=== PATIENT | female | born 1985 | race Caucasian/White ===

== ENCOUNTER → 2018-07-30 05:26 | Observation (INO) ==
--- NOTE | 2018-07-30 05:17 | Discharge Summary ---
Date of Encounter: 07/30/18 Time of Encounter: 05:18 - Discharge Diagnosis (1) 22 weeks gestation of Priority: Primary Status: Acute Comments: Follow-up with Dr. Toscano within 7 days labor parameters given Discharge to ED (2) Abdominal pain during Priority: Secondary Status: Acute Comments: causes ruled out Pain is epigastric to far reaching around back Plans to be seen in ED Qualifiers: Trimester: third trimester Qualified Code(s): O26.893 - Other specified related conditions, third trimester; R10.9 - Unspecified abdominal pain - Discharge Medications Home Medications: Blood Pressure Medicine 11/03/17 [History] Cefdinir [Omnicef] 600 mg PO DAILY #20 capsule 11/03/17 [Rx] Fluconazole [Diflucan] 150 mg PO Q72H #2 tab 11/03/17 [Rx] Ondansetron [Zofran ODT] 8 mg SL TID PRN #12 tab.rapdis 11/03/17 [Rx] Promethazine/Dextromethorphan [Promethazine-Dm Solution] 5 ml PO Q4-6H PRN #120 ml 11/03/17 [Rx] Nitrofurantoin (BID) [Macrobid] 100 mg PO BID #14 capsule 04/08/18 [Rx] Vit Calc,Iron,Folic [ Vitamins] 1 each PO DAILY #30 tablet [Rx] Allergies/Adverse Reactions: 3 Allergy/AdvReac Type Severity Reaction Status Date / Time No Known Allergies Allergy Verified 11/03/17 17:42 Date of admission: 07/30/18 04:00 Discharging clinician: Mis Smallwood Anticipated date of discharge: 07/30/18 - Patient Status Disposition: Home, Self-Care Condition: Good Functional capacity at discharge: independent ambulation Overall status at discharge: patient is progressing back to baseline - Discharge Instructions Follow Up With: Bola Malone MD [Partnered Physician] - - Diet and Activity Activity: increase activity as tolerated Diet: regular diet Hospital Course [employer] Reason for admission: other Discharge diagnosis: other Hospital course: Ms. Apodaca is a 33-year-old G 8 [id number] a 22 weeks gestation who presents with sudden onset of right upper quadrant pain that began this evening around midnight or 1 AM. She endorses movement and denies leakage of fluid, vaginal bleeding, contractions. Denies nausea and vomiting. Return to ED for further workup. Time Attestation: Total time spent providing and/or coordinating discharge services: Time Spent: Less than 30 minutes Exam - Constitutional General appearance IM: mild distress, A&O X 3, pleasant, answers questions appropriately - Respiratory Respiratory exam: Present: CTAB - Cardiovascular Cardiovascular exam IM: Present: RRR, +S1, +S2 - GI/Abdominal GI/Abdominal exam IM: normal bowel sounds, no peritoneal signs - Rectal Rectal exam: deferred - Uterine Tone: Firm - Extremities Exam Extremities exam IM: Present: normal capillary refill, normal inspection, radial pulses palpable and symmetrical - Neurological Exam Neurological exam: alert, CN II-XII intact, normal gait, oriented X3, reflexes normal, strengths equal and symetr throughout - VTE Reasons for not Prescribing Prophylaxis: Treatment not Indicated - Low risk for VTE
[2018-07-30 05:38] LABS: Bilirubin,Urine Negative (Negative); Blood,Urine Trace (Negative); Clarity,Urine Clear (Clear); Color,Urine Yellow (Yellow); Glucose,Urine (UA) Normal (Normal); Ketones,Urine Negative (Negative); Leukocyte Esterase,Urine Small (Negative); Nitrite,Urine Negative (Negative); Protein,Urine Negative (Neg-Trace); Specific Gravity,Urine 1.013 (1.010-1.025); Urobilinogen,Urine Normal (Normal)
[2018-07-30 05:40] LABS: Bacteria,Urine Few per hpf (None-Few); Hyaline Casts,Urine None Seen per lpf (None-Few); RBC,Urine 0-3 per hpf (0-3); Squamous Epithelial Cell,Urine Many per lpf (None-Few)
== END | disposition home or self-care (01) ==
LOC: 1NENULAB
PROVIDERS: ADMIT Obstetrics & Gynecology; ATTEND Obstetrics & Gynecology

== ENCOUNTER 2018-10-25 12:44 | Observation (INO) ==
[2018-10-23 23:45] LABS: Bilirubin,Urine Negative (Negative); Blood,Urine Trace (Negative); Clarity,Urine Cloudy (Clear); Color,Urine Yellow (Yellow); Glucose,Urine (UA) Normal (Normal); Ketones,Urine Negative (Negative); Leukocyte Esterase,Urine Negative (Negative); Nitrite,Urine Negative (Negative); Protein,Urine 30 mg/dL (Neg-Trace); Specific Gravity,Urine 1.011 (1.010-1.025); Urobilinogen,Urine Normal (Normal)
[2018-10-23 23:46] LABS: Bacteria,Urine Moderate per hpf (None-Few); Hyaline Casts,Urine None Seen per lpf (None-Few); RBC,Urine 0-3 per hpf (0-3); Squamous Epithelial Cell,Urine Many per lpf (None-Few)
[2018-10-23 23:47] LABS: Basophils % 0.2 %; Eosinophils # 0.1 K/mcL (0.0-0.6); Eosinophils % 0.6 %; Hematocrit 33.7 % (35.3-44.9); Immature Granulocytes % 0.2 % (0-4); Lymphocytes # 2.8 K/mcL (0.6-4.6); Lymphocytes % 32.7 %; Mean Corpuscular HGB Conc 32.6 g/dL (31.6-35.5); Mean Corpuscular Hemoglobin 26.8 pg (28.0-33.3); Mean Corpuscular Volume 82.2 fL (83.0-100.0); Mean Platelet Volume 10.7 fL (9.4-12.4); Monocytes # 0.4 K/mcL (0.0-1.3); Monocytes % 4.2 %; Neutrophils # 5.3 K/mcL (1.6-8.9); Platelet Count 244 K/mcL (140-400); Red Cell Distribution Width 12.7 % (11.5-14.5); Segmented Neutrophils % 62.1 %
[2018-10-23 23:52] LABS: Protein/Creatinine Ratio,Urine 0.26 mg/mg (0.00-0.20)
[2018-10-23 23:53] LABS: Amphetamine Screen,Urine Negative ng/mL (Cutoff=1000); Barbiturate Screen,Urine Negative ng/mL (Cutoff=200); Benzodiazepines Screen,Urine Negative ng/mL (Cutoff=200); Cannabinoid Screen,Urine Negative ng/mL (Cutoff = 50); Cocaine Screen,Urine Negative ng/mL (Cutoff= 300); Opiate Screen,Urine Negative ng/mL (Cutoff=300); Phencyclidine Screen,Urine Negative ng/mL (Cutoff=25)
[2018-10-24 00:02] LABS: Alanine Aminotransferase 17 Units/L (7-52); Aspartate Amino Transferase 18 Units/L (13-39); BUN/Creatinine Ratio 18 (6-26); Blood Urea Nitrogen 9 mg/dL (6-20); Lactate Dehydrogenase 142 Units/L (140-271); Uric Acid 5.7 mg/dL (2.3-7.6); eGFR For Non-African Americans > 60 (> 60)
--- NOTE | 2018-10-24 02:00 | Discharge Summary ---
Date of Encounter: 10/24/18 Time of Encounter: 01:59 - Discharge Diagnosis (1) 34 weeks gestation of Priority: Primary Status: Acute Comments: Follow-up with Dr. Malone on as scheduled labor precautions discussed Discharge home (2) Chronic hypertension affecting Priority: Secondary Status: Acute Comments: Continue home medication regimen and follow-up with Dr. Malone for further instruction Advised to take the recommended additional dose of labetalol when her blood pressure is elevated prior to coming to labor and delivery - Discharge Medications Home Medications: Blood Pressure Medicine 11/03/17 [History] Cefdinir [Omnicef] 600 mg PO DAILY #20 capsule 11/03/17 [Rx] Fluconazole [Diflucan] 150 mg PO Q72H #2 tab 11/03/17 [Rx] Ondansetron [Zofran ODT] 8 mg SL TID PRN #12 tab.rapdis 11/03/17 [Rx] Promethazine/Dextromethorphan [Promethazine-Dm Solution] 5 ml PO Q4-6H PRN #120 ml 11/03/17 [Rx] Vit Calc,Iron,Folic [ Vitamins] 1 each PO DAILY #30 tablet 04/08/18 [Rx] Amoxicillin [Amoxil] 500 mg PO BID 10/24/18 [History] Labetalol [Trandate] 50 mg PO BID 10/24/18 [History] Allergies/Adverse Reactions: Allergy/AdvReac Type Severity Reaction Status Date / Time No Known Allergies Allergy Verified 07/30/18 05:57 Data Procedures and tests throughout hospitalization: Laboratory Tests 10/23/18 10/23/18 10/23/18 23:10 23:10 23:10 WBC 8.5 RBC 4.10 Hgb 11.0 L Hct 33.7 L MCV 82.2 L MCH 26.8 L MCHC 32.6 RDW 12.7 Plt Count 244 MPV 10.7 Immature Gran % 0.2 Seg Neutrophils % 62.1 Lymphocytes % 32.7 Monocytes % 4.2 Eosinophils % 0.6 Basophils % 0.2 Neutrophils # 5.3 Lymphocytes # 2.8 Monocytes # 0.4 Eosinophils # 0.1 Basophils # 0.0 BUN 9 Creatinine 0.49 L Est GFR ( Amer) > 60 Est GFR (Non-Af Amer) > 60 BUN/Creatinine Ratio 18 Uric Acid 5.7 AST 18 ALT 17 Lactate Dehydrogenase 142 Urine Color Urine Clarity Urine pH Ur Specific [place] Urine Protein Urine Glucose (UA) Urine Ketones Urine Blood Urine Nitrite Urine Bilirubin Urine Urobilinogen Ur Leukocyte Esterase Urine Microscopic RBC Urine Microscopic WBC Ur Squamous Epith Cells Urine Bacteria Hyaline Casts Ur Culture Indicated? Urine Creatinine 153 Protein/Creatinin Ratio 0.26 H Urine Total Protein 39 H Urine Opiates Screen Ur Barbiturates Screen Ur Phencyclidine Scrn Ur Amphetamines Screen U Benzodiazepines Scrn Urine Cocaine Screen U Marijuana (THC) Screen Ur Drug Screen Interp 10/23/18 10/23/18 23:10 23:10 WBC RBC Hgb Hct MCV MCH MCHC RDW Plt Count MPV Immature Gran % Seg Neutrophils % Lymphocytes % Monocytes % Eosinophils % Basophils % Neutrophils # Lymphocytes # Monocytes # Eosinophils # Basophils # BUN Creatinine Est GFR ( Amer) Est GFR (Non-Af Amer) BUN/Creatinine Ratio Uric Acid AST ALT Lactate Dehydrogenase Urine Color Yellow Urine Clarity Cloudy A Urine pH 6.0 Ur Specific [place] 1.011 Urine Protein 30 H Urine Glucose (UA) Normal Urine Ketones Negative Urine Blood Trace H Urine Nitrite Negative Urine Bilirubin Negative Urine Urobilinogen Normal Ur Leukocyte Esterase Negative Urine Microscopic RBC 0-3 Urine Microscopic WBC 5-15 H Ur Squamous Epith Cells Many H Urine Bacteria Moderate H Hyaline Casts None Seen Ur Culture Indicated? NO Urine Creatinine Protein/Creatinin Ratio Urine Total Protein Urine Opiates Screen Negative Ur Barbiturates Screen Negative Ur Phencyclidine Scrn Negative Ur Amphetamines Screen Negative U Benzodiazepines Scrn Negative Urine Cocaine Screen Negative U Marijuana (THC) Screen Negative Ur Drug Screen Interp See Below Labs on day of discharge: Labs from last 24 hours 10/23/18 10/23/18 10/23/18 23:10 23:10 23:10 WBC RBC Hgb Hct MCV MCH MCHC RDW Plt Count MPV Immature Gran % Seg Neutrophils % Lymphocytes % Monocytes % Eosinophils % Basophils % Neutrophils # Lymphocytes # Monocytes # Eosinophils # Basophils # BUN Creatinine Est GFR ( Amer) Est GFR (Non-Af Amer) BUN/Creatinine Ratio Uric Acid AST ALT Lactate Dehydrogenase Urine Color Yellow Urine Clarity Cloudy A Urine pH 6.0 Ur Specific [place] 1.011 Urine Protein 30 H Urine Glucose (UA) Normal Urine Ketones Negative Urine Blood Trace H Urine Nitrite Negative Urine Bilirubin Negative Urine Urobilinogen Normal Ur Leukocyte Esterase Negative Urine Microscopic RBC 0-3 Urine Microscopic WBC 5-15 H Ur Squamous Epith Cells Many H Urine Bacteria Moderate H Hyaline Casts None Seen Ur Culture Indicated? NO Urine Creatinine 153 Protein/Creatinin Ratio 0.26 H Urine Total Protein 39 H Urine Opiates Screen Negative Ur Barbiturates Screen Negative Ur Phencyclidine Scrn Negative Ur Amphetamines Screen Negative U Benzodiazepines Scrn Negative Urine Cocaine Screen Negative U Marijuana (THC) Screen Negative Ur Drug Screen Interp See Below 10/23/18 10/23/18 23:10 23:10 WBC 8.5 RBC 4.10 Hgb 11.0 L Hct 33.7 L MCV 82.2 L MCH 26.8 L MCHC 32.6 RDW 12.7 Plt Count 244 MPV 10.7 Immature Gran % 0.2 Seg Neutrophils % 62.1 Lymphocytes % 32.7 Monocytes % 4.2 Eosinophils % 0.6 Basophils % 0.2 Neutrophils # 5.3 Lymphocytes # 2.8 Monocytes # 0.4 Eosinophils # 0.1 Basophils # 0.0 BUN 9 Creatinine 0.49 L Est GFR ( Amer) > 60 Est GFR (Non-Af Amer) > 60 BUN/Creatinine Ratio 18 Uric Acid 5.7 AST 18 ALT 17 Lactate Dehydrogenase 142 Urine Color Urine Clarity Urine pH Ur Specific [place] Urine Protein Urine Glucose (UA) Urine Ketones Urine Blood Urine Nitrite Urine Bilirubin Urine Urobilinogen Ur Leukocyte Esterase Urine Microscopic RBC Urine Microscopic WBC Ur Squamous Epith Cells Urine Bacteria Hyaline Casts Ur Culture Indicated? Urine Creatinine Protein/Creatinin Ratio Urine Total Protein Urine Opiates Screen Ur Barbiturates Screen Ur Phencyclidine Scrn Ur Amphetamines Screen U Benzodiazepines Scrn Urine Cocaine Screen U Marijuana (THC) Screen Ur Drug Screen Interp Date of admission: 10/23/18 22:50 Primary care physician: Mis Smallwood Discharging clinician: Mis Smallwood Anticipated date of discharge: 10/24/18 - Patient Status Disposition: Home, Self-Care Condition: Good Functional capacity at discharge: independent ambulation Overall status at discharge: patient is progressing back to baseline - Discharge Instructions Follow Up With: Mis Smallwood [Primary Care Provider] - Bola Malone MD [Partnered Physician] - - Diet and Activity Activity: increase activity as tolerated Diet: regular diet Hospital Course [employer] Reason for admission: other Discharge diagnosis: other Hospital course: Patient presents from home with c/o elevated BP. On arrival, BP is elevated x 2 and PIH evaluation was completed which was negative. She endorses good fm and denies lof, vb, ctx. She is unable to accurately report her BP medications. 20 mg of labetalol was administered IV followed by 200 mg by mouth which resolved her BP issues. She was advised to follow up with Dr. Malone as scheduled on . Time Attestation: Total time spent providing and/or coordinating discharge services: Time Spent: Less than 30 minutes Exam - Constitutional General appearance IM: A&O X 3 - Respiratory Respiratory exam: Present: CTAB - Cardiovascular Cardiovascular exam IM: Present: RRR, +S1, +S2 - GI/Abdominal GI/Abdominal exam IM: normal bowel sounds, no peritoneal signs - Rectal Rectal exam: deferred - Uterine Tone: Firm - Extremities Exam Extremities exam IM: Present: normal capillary refill, normal inspection, radial pulses palpable and symmetrical - Neurological Exam Neurological exam: alert, CN II-XII intact, normal gait, oriented X3, reflexes normal, no focal deficits, strengths equal and symetr throughout - VTE Reasons for not Prescribing Prophylaxis: Treatment not Indicated - Low risk for VTE
--- NOTE | 2018-10-24 09:08 | OB/GYN Progress Note ---
Date of Encounter: 10/24/18 Time of Encounter: 09:02 - Assessment and Plan (1) Chronic hypertension affecting Current Visit: Yes Status: Acute 33 y/o @ 34+5 weeks, CHTN with possible superimposed pre eclampsia, I reviewed the patient's heart rate tracing and she had a late decel this AM and as a result, she will be placed on prolonged monitoring for 12 hrs. In the meantime, that will give me an opportunity to monitor her BP now that I have increased her Labetalol to 200mg TID. Her tox labs are normal and her pressures are in the mild range. She's had severe range pressures corrected with IV labetalol 20mg IVP and 200mg PO. Objective - Vital Signs Vital Signs: Intake and Output 10/23/18 10/24/18 10/24/18 23:59 07:59 15:59 Other: Weight 181.9 kg Patient Weight 10/24/18 23:59 Weight 181.9 kg - Labs Labs: Abnormal lab results Hgb 11.0 g/dL (11.5-15.4) L 10/23/18 23:10 Hct 33.7 % (35.3-44.9) L 10/23/18 23:10 MCV 82.2 fL (83.0-100.0) L 10/23/18 23:10 MCH 26.8 pg (28.0-33.3) L 10/23/18 23:10 Creatinine 0.49 mg/dL (0.60-1.20) L 10/23/18 23:10 Urine Clarity Cloudy (Clear) A 10/23/18 23:10 Urine Protein 30 mg/dL (Neg-Trace) H 10/23/18 23:10 Urine Blood Trace (Negative) H 10/23/18 23:10 Urine Microscopic WBC 5-15 per hpf (0-3) H 10/23/18 23:10 Ur Squamous Epith Cells Many per lpf (None-Few) H 10/23/18 23:10 Urine Bacteria Moderate per hpf (None-Few) H 10/23/18 23:10 Protein/Creatinin Ratio 0.26 mg/mg (0.00-0.20) H 10/23/18 23:10 Urine Total Protein 39 mg/dL (1-14) H 10/23/18 23:10
[2018-10-24] MEDS: Betamethasone Acet/SodPhos 6 MG/ML MDV IM SCH (17:49)
[2018-10-24 20:32] LABS: Basophils % 0.2 %; Eosinophils % 0.2 %; Hematocrit 32.2 % (35.3-44.9); Hemoglobin 10.5 g/dL (11.5-15.4); Immature Granulocytes % 0.4 % (0-4); Lymphocytes # 1.1 K/mcL (0.6-4.6); Lymphocytes % 20.2 %; Mean Corpuscular HGB Conc 32.6 g/dL (31.6-35.5); Mean Corpuscular Hemoglobin 26.9 pg (28.0-33.3); Mean Corpuscular Volume 82.4 fL (83.0-100.0); Mean Platelet Volume 10.7 fL (9.4-12.4); Monocytes # 0.1 K/mcL (0.0-1.3); Monocytes % 2.2 %; Neutrophils # 4.3 K/mcL (1.6-8.9); Platelet Count 255 K/mcL (140-400); Red Blood Count 3.91 M/mcL (3.82-4.97); Segmented Neutrophils % 76.8 %
--- NOTE | 2018-10-24 20:32 | OB/GYN Progress Note ---
Date of Encounter: 10/25/18 Time of Encounter: 20:25 - Assessment and Plan (1) Chronic hypertension affecting Current Visit: Yes Status: Acute 33 y/o @ 34+5 weeks, CHTN with superimposed pre eclampsia, Patient's ANGELES has subsided and she feels much better. She does not report RUQ pain/epigastric pain, visual disturbances, nausea or other toxemia symptoms CAT 1 tracing I reviewed the patient's BP and she has severe range pressures mixed with mild range presures I've given IV Labetalol 20mg x1 and changed her Labetalol 200mg TID to 400mg BID and her pressures have come down to mild range will do cont monitoring and BP checks per protocol, aside from her anemia repeat tox labs are normal Objective - Vital Signs Vital Signs: Intake and Output 10/24/18 10/24/18 10/24/18 07:59 15:59 23:59 Other: Weight 181.9 kg Patient Weight 10/24/18 23:59 Weight 181.9 kg - Labs Labs: Abnormal lab results Hgb 11.0 g/dL (11.5-15.4) L 10/23/18 23:10 Hct 33.7 % (35.3-44.9) L 10/23/18 23:10 MCV 82.2 fL (83.0-100.0) L 10/23/18 23:10 MCH 26.8 pg (28.0-33.3) L 10/23/18 23:10 Creatinine 0.49 mg/dL (0.60-1.20) L 10/23/18 23:10 Urine Clarity Cloudy (Clear) A 10/23/18 23:10 Urine Protein 30 mg/dL (Neg-Trace) H 10/23/18 23:10 Urine Blood Trace (Negative) H 10/23/18 23:10 Urine Microscopic WBC 5-15 per hpf (0-3) H 10/23/18 23:10 Ur Squamous Epith Cells Many per lpf (None-Few) H 10/23/18 23:10 Urine Bacteria Moderate per hpf (None-Few) H 10/23/18 23:10 Protein/Creatinin Ratio 0.26 mg/mg (0.00-0.20) H 10/23/18 23:10 Urine Total Protein 39 mg/dL (1-14) H 10/23/18 23:10
[2018-10-24 20:50] LABS: Alanine Aminotransferase 19 Units/L (7-52); Aspartate Amino Transferase 19 Units/L (13-39); BUN/Creatinine Ratio 12 (6-26); Blood Urea Nitrogen 8 mg/dL (6-20); Lactate Dehydrogenase 129 Units/L (140-271); Uric Acid 6.1 mg/dL (2.3-7.6); eGFR For Non-African Americans > 60 (> 60)
[2018-10-24 23:42] LABS: Protein/Creatinine Ratio,Urine 0.16 mg/mg (0.00-0.20)
--- NOTE | 2018-10-25 06:30 | OB/GYN Progress Note ---
Date of Encounter: 10/25/18 Time of Encounter: 06:30 - Assessment and Plan (1) Chronic hypertension affecting Current Visit: Yes Status: Acute 33 y/o @ 34+6 weeks, CHTN with superimposed pre eclampsia, Patient is doing well, no signs/symptoms of toxemia CAT 1 tracing I reviewed the patient's BP on Labetalol 400mg BID and they are in the mild range will consider discharge today if her pressures hold after the AM dose, cont monitoring Objective - Vital Signs Vital Signs: Intake and Output 10/24/18 10/24/18 10/25/18 15:59 23:59 07:59 Other: Weight 181.9 kg - Labs Labs: Abnormal lab results Hgb 10.5 g/dL (11.5-15.4) L 10/24/18 20:17 Hct 32.2 % (35.3-44.9) L 10/24/18 20:17 MCV 82.4 fL (83.0-100.0) L 10/24/18 20:17 MCH 26.9 pg (28.0-33.3) L 10/24/18 20:17 Lactate Dehydrogenase 129 Units/L (140-271) L 10/24/18 20:17 Urine Clarity Cloudy (Clear) A 10/23/18 23:10 Urine Protein 30 mg/dL (Neg-Trace) H 10/23/18 23:10 Urine Blood Trace (Negative) H 10/23/18 23:10 Urine Microscopic WBC 5-15 per hpf (0-3) H 10/23/18 23:10 Ur Squamous Epith Cells Many per lpf (None-Few) H 10/23/18 23:10 Urine Bacteria Moderate per hpf (None-Few) H 10/23/18 23:10
--- NOTE | 2018-10-25 12:38 | OB/GYN Progress Note ---
Date of Encounter: 10/25/18 Time of Encounter: 12:31 - Assessment and Plan (1) 34 weeks gestation of Current Visit: Yes Status: Acute (2) Chronic hypertension affecting Current Visit: Yes Status: Acute She had been noncompliant with medications. She is now on Labatolol 400 mg bid and currently maintained in the mild range. She received steroids yesterday evening and will receive her second dose tonight. Case was discussed with and with her requiring stablization on meds and normal labs no indication for delivery at this time. We will obtain an ultrasound for weight and fluid today. Continuous EFM overnight. If stable in the morning we will likely discharge tomorrow to followup Tuesday as scheduled. This was explained to the patient and all of her questions were answered. 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 She has a followup scheduled later this month. Subjective - Subjective Principal diagnosis: vison blurred since Tuesday Interval history: Patient states she has a mild headache that is improved since yesterday. She is asking to be able to eat and she would like to go home. She reports decreased movement today.She denies any RUQ pain, contractions, vaginal bleeding, or leaking fluid. She states this has been complicated by Anti-c antibody with her most recent titer 1:4 end of September. She is due to followup with Yuri Vines [facility] on 11/07 for her last appointment. Objective - Exam FHR: auscultation normal, category 1 (with baseline 114, reactive. Decel at 0738 this morning with recovery ) Auscultation: bilateral: normal Abdomen: Present: soft, gravid. Absent: tenderness - Labs Labs: Abnormal lab results Hgb 10.5 g/dL (11.5-15.4) L 10/24/18 20:17 Hct 32.2 % (35.3-44.9) L 10/24/18 20:17 MCV 82.4 fL (83.0-100.0) L 10/24/18 20:17 MCH 26.9 pg (28.0-33.3) L 10/24/18 20:17 Lactate Dehydrogenase 129 Units/L (140-271) L 10/24/18 20:17 Urine Clarity Cloudy (Clear) A 10/23/18 23:10 Urine Protein 30 mg/dL (Neg-Trace) H 10/23/18 23:10 Urine Blood Trace (Negative) H 10/23/18 23:10 Urine Microscopic WBC 5-15 per hpf (0-3) H 10/23/18 23:10 Ur Squamous Epith Cells Many per lpf (None-Few) H 10/23/18 23:10 Urine Bacteria Moderate per hpf (None-Few) H 10/23/18 23:10
[~2018-10-25 12:44] MED LIST: *HR* Labetalol 20 MG/4 ML SYRINGE IVP ONE; Acetaminophen 325 MG TABLET PO ONE; Acetaminophen 325 MG TABLET PO PRN; Acetaminophen/Butalbital/CaffeineTABLET PO PRN; Ondansetron ODT 4 MG TAB.RAPDIS SL ONE; Ringers Solution, Lactated 1,000 ML ONE
[2018-10-25] MEDS ORDERED: Betamethasone Acet/SodPhos 6 MG/ML MDV IM ONE (18:00)
[2018-10-25] MEDS: Betamethasone Acet/SodPhos 6 MG/ML MDV IM SCH (18:04)
--- NOTE | 2018-10-25 18:37 | OB/GYN History & Physical ---
Date of Encounter: 10/25/18 Time of Encounter: 18:37 Assessment and Plan (1) Chronic hypertension affecting Current visit: Yes Status: Acute I spoke to MFM (Dr Padilla) about the patient the recommendation is to keep her at least 24 hrs inpt for BP montoring, She is s/p BMZ, Her pressures are stable on Labetalol 400mg BID, She is going to have a growth U/S/fluid check, if she continues to require antihypertensives to correct severe range pressures, then delivery will need to be considered. pls see antepartum notes on FHT events History of Present Illness HPI: Ms. Apodaca is a 33 year old female @ 34+6 weeks who presented to L&D on 10/23 at night with complaints of extremity swelling, headaches and "not just feeling well". She sees Dr Toscano and reports that she has a h/o CHTN that has been controlled on Labetalol and methyldopa during this until the time of presentation. It is unclear if the patient has been taking the right meds as she reports "I take 50mg of Labetalol". When her pharmacy was contacted, it was communicated to us that the patient has not filled her Labetalol script since May. She presented to L&D with severe range pressures that were corrected with IV labetalol and PO labetalol. During the course of her stay, the patient has had multiple severe range pressures and has been increased to 400mg BID of labetalol up from 200mg TID of Labetalol(pls see Antepartum notes). She does not report LOF, VB or ctxs, feels good FM. Past Med Surg Social Fam HX - Past Medical History Medical history: no medical history Additional medical history: gall stones Psychiatric history: anxiety - Past Surgical History Surgical History: Additional surgical history: hernia repair - Social History Smoking Status: Never smoker Smokeless Tobacco Status: No Alcohol use: none Drug use: none - Family History Mother Living Status: Still Living Hx Family Cardiac Disorders: Yes (htn) Hx Family Respiratory Disorders: No Hx Family Cancer: No Hx Family GI Disorders: No Hx Family Genitourinary Disorders: No Hx Family Endocrine Disorder: Yes (diabetic) Hx Family Musculoskeletal Disorders: No Hx Family Neuromuscular Disorders: No Hx Family Neurologic Disorders: No Hx Family HEENT Disorders: No Hx Family Autoimmune Disorders: No Hx Family Reproductive Disorders: No Hx Family Psychosocial Disorders: No Hx Family Medical Disorders: No Obstetrical History - Pregnancies : 7 Para: 5 Medications and Allergies Blood Pressure Medicine 11/03/17 [History] Cefdinir [Omnicef] 600 mg PO DAILY #20 capsule 11/03/17 [Rx] Fluconazole [Diflucan] 150 mg PO Q72H #2 tab 11/03/17 [Rx] Ondansetron [Zofran ODT] 8 mg SL TID PRN #12 tab.rapdis 11/03/17 [Rx] Promethazine/Dextromethorphan [Promethazine-Dm Solution] 5 ml PO Q4-6H PRN #120 ml 11/03/17 [Rx] Vit Calc,Iron,Folic [ Vitamins] 1 each PO DAILY #30 tablet 04/08/18 [Rx] Amoxicillin [Amoxil] 500 mg PO BID 10/24/18 [History] Labetalol [Trandate] 50 mg PO BID 10/24/18 [History] Labetalol [Trandate] 200 mg PO TID #90 tablet 10/24/18 [Rx] Allergy/AdvReac Type Severity Reaction Status Date / Time No Known Allergies Allergy Verified 07/30/18 05:57 Review of System OB All systems PM: reviewed and no additional remarkable complaints except as stated Exam - Constitutional Constitutional: no acute distress - HEENT HEENT: PERRL - Neck Neck exam: full ROM - Lungs Respiratory exam: CTAB - Cardiovascular Cardiovascular exam: RRR - Abdomen Abdomen: Present: gravid - Extremities Extremities exam: warm Results Result Diagrams: 10/24/18 20:17 10/24/18 20:17 Abnormal lab results Hgb 10.5 g/dL (11.5-15.4) L 10/24/18 20:17 Hct 32.2 % (35.3-44.9) L 10/24/18 20:17 MCV 82.4 fL (83.0-100.0) L 10/24/18 20:17 MCH 26.9 pg (28.0-33.3) L 10/24/18 20:17 Lactate Dehydrogenase 129 Units/L (140-271) L 10/24/18 20:17 Urine Clarity Cloudy (Clear) A 10/23/18 23:10 Urine Protein 30 mg/dL (Neg-Trace) H 10/23/18 23:10 Urine Blood Trace (Negative) H 10/23/18 23:10 Urine Microscopic WBC 5-15 per hpf (0-3) H 10/23/18 23:10 Ur Squamous Epith Cells Many per lpf (None-Few) H 10/23/18 23:10 Urine Bacteria Moderate per hpf (None-Few) H 10/23/18 23:10 All other labs normal. - VTE Reasons for not Prescribing Prophylaxis: Treatment not Indicated - Low risk for VTE
--- NOTE | 2018-10-26 14:31 | Event Note ---
Date of Encounter: 10/26/18 Time of Encounter: 14:00 At bedside to discuss plan with patient. RNST for GA. Steroid complete at 1600 this afternoon. [place] quiet. BP normal, recommended to continue labetalol 400mg BID. Given PReE precaution(s). Recommendation per MFM at [facility], to continue twice weekly NSTs, once weekly [place], and weekly PreE labs. Discussed kick count(s) at length with patient. MVP 4x2cm, [place] 5.3cm, formally performed at [place] today. US confirmed (today) VTX. OK to DC patient to home. Scheduled f/u appt tomorrow 10/27 at 1015A. MD TOÑO
== END 2018-10-26 15:28 | disposition home or self-care (01) ==
LOC: 1NENULAB
PROVIDERS: ADMIT Advanced Practice Midwife; ATTEND Advanced Practice Midwife

== ENCOUNTER 2018-10-27 12:16 | Inpatient (IN) ==
[2018-10-27 13:33] LABS: Basophils % 0.2 %; Hemoglobin 9.7 g/dL (11.5-15.4); Immature Granulocytes % 2.1 % (0-4); Lymphocytes # 1.6 K/mcL (0.6-4.6); Lymphocytes % 14.1 %; Mean Corpuscular HGB Conc 31.3 g/dL (31.6-35.5); Mean Corpuscular Hemoglobin 26.5 pg (28.0-33.3); Mean Corpuscular Volume 84.7 fL (83.0-100.0); Mean Platelet Volume 11.4 fL (9.4-12.4); Monocytes # 0.7 K/mcL (0.0-1.3); Monocytes % 6.2 %; Neutrophils # 8.9 K/mcL (1.6-8.9); Nucleated Red Blood Cells 1.1 /100 WBC (0); Platelet Count 272 K/mcL (140-400); Red Blood Count 3.66 M/mcL (3.82-4.97); Red Cell Distribution Width 13.2 % (11.5-14.5); Segmented Neutrophils % 77.4 %
[2018-10-27 13:35] LABS: Bilirubin,Urine Negative (Negative); Blood,Urine Trace (Negative); Clarity,Urine Clear (Clear); Color,Urine Yellow (Yellow); Glucose,Urine (UA) Normal (Normal); Ketones,Urine Negative (Negative); Leukocyte Esterase,Urine Negative (Negative); Nitrite,Urine Negative (Negative); PH,Urine 6.5 pH Units (5.0-8.0); Protein,Urine Negative (Neg-Trace); Specific Gravity,Urine 1.007 (1.010-1.025); Urobilinogen,Urine Normal (Normal)
[2018-10-27 13:37] LABS: Bacteria,Urine None Seen per hpf (None-Few); Hyaline Casts,Urine None Seen per lpf (None-Few); RBC,Urine 0-3 per hpf (0-3); Squamous Epithelial Cell,Urine Many per lpf (None-Few); WBC,Urine 0-3 per hpf (0-3)
[2018-10-27 13:58] LABS: Alanine Aminotransferase 176 Units/L (7-52); Aspartate Amino Transferase 155 Units/L (13-39); BUN/Creatinine Ratio 19 (6-26); Blood Urea Nitrogen 10 mg/dL (6-20); Lactate Dehydrogenase 245 Units/L (140-271); Protein/Creatinine Ratio,Urine 0.36 mg/mg (0.00-0.20); Uric Acid 6.6 mg/dL (2.3-7.6); eGFR For Non-African Americans > 60 (> 60)
--- NOTE | 2018-10-27 16:55 | OB/GYN History & Physical ---
Date of Encounter: 10/29/18 Time of Encounter: 16:00 Assessment and Plan (1) Pre-eclampsia added to pre-existing hypertension Current visit: Yes Status: Acute Blood pressures remain elevated despite receiving Labetalol 400 mg at 1600. Will give another 200mg LFTs elevated- AST 155, ALT 176 Protein/Cr ratio 0.36. Total urine protein 21 Platelet count 272 History of chronic hypertension and pre-eclampsia with prior pregnancies Received 2 doses steroids on 10/24 and 10/25/18 Ultrasound today with vertex position Continue close blood pressure monitoring and Labetalol 400mg BID Secondary to elevated blood pressures and LFTs, will induce labor, TOLAC (p atient had low transverse incision during 12/22/2015) Dilated at 1cm in the office today. Mckeon bulb GBS unknown. 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 Apodaca is a 33 year old female 1715 with past medical history of chronic hypertension and red blood cell antibody positive, titer 1:4, who presen ts at 35w1d who presents with elevated blood pressures. She has a history of pre-eclampsia during her previous pregnancies. The patient was admitted on 10/23 with complaints of lower extremity swelling and headaches. PIH labs done during her stay were normal. Blood pressures were elevated and she has not been compliant with her home medications. Blood pressures were stabilized with labetalol 400mg BID. Patient also received two doses of steroids. Case was discussed with [facility], Dr. Thompson and at that time, stabilization of blood pressures of medications and normal labs did not indicate delivery at that time. Patient also had an ultrasound on 10/25/18 which showed 2263 grams which is at the 25-50th percentile at 34 weeks. There was noted oligohydramnios but a pocket of fluid of 4.33x2.21 cm. Fetus was also noted to be breech presentation. She was stable and discharged home on labetalol yesterday. This morning around 0400, patient woke up with sharp contraction like pain in bilateral upper abdomen that radiated down to the lower abdomen and around her back bilaterally. Pain lasted 3 hours. No nausea or vomiting. Pain spontaneously resolved on its own. Denies vaginal bleeding, loss of fluid, frequent painful contractions. Patient had follow up with Dr. Oneil today. In the office, the patient had elevated blood pressures in the severe range. At that time she also complains of blurred vision, which has since improved. Dilated at 1cm on exam in the office. She was sent over for [facility] labs and further management of her hypertension. She denies recurrent headaches, chest pain, shortness of breath, dysuria, weakness, paresthesias. Reports good movement today. complicated by chronic hypertension and advanced maternal age GBS unknown Rubella immune Varicella immune HBS Ag non reactive Hep C Ab non-reactive HIV non-reactive Chlamydia negative Gonorrhea negative ABO/Rh blood type A pos TSH 3.120 Past Med Surg Social Fam HX - Past Medical History Medical history: no medical history Additional medical history: gall stones Psychiatric history: anxiety - Past Surgical History Surgical History: Additional surgical history: T and A, hernia repair - Social History Smoking Status: Never smoker Smokeless Tobacco Status: No Alcohol use: none Drug use: none - Family History Mother Name: Elizabeth Wolf Living Status: Still Living Hx Family Cardiac Disorders: Yes (HTN) Hx Family Respiratory Disorders: No Hx Family Cancer: No Hx Family GI Disorders: No Hx Family Endocrine Disorder: Yes (diabetic) Hx Family Neuromuscular Disorders: No Hx Family Neurologic Disorders: No Hx Family HEENT Disorders: No Hx Family Autoimmune Disorders: No Obstetrical History - Pregnancies : 7 Para: 5 Term: 3 : 2 Ab's: 1 Livin Medications and Allergies RX: Ondansetron [Zofran ODT] 8 mg SL TID PRN #12 tab.rapdis 11/03/17 [Rx] RX: Promethazine/Dextromethorphan [Promethazine-Dm Solution] 5 ml PO Q4-6H PRN #120 ml 11/03/17 [Rx] RX: Vit Calc,Iron,Folic [ Vitamins] 1 each PO DAILY #30 tablet 04/08/18 [Rx] RX: Amoxicillin [Amoxil] 500 mg PO BID 10/24/18 [History] RX: Labetalol [Trandate] 400 mg PO BID 10/27/18 [History] Allergy/AdvReac Type Severity Reaction Status Date / Time No Known Allergies Allergy Verified 07/30/18 05:57 Review of System OB All systems PM: reviewed and no additional remarkable complaints except as stat ed Exam - Constitutional Constitutional: well developed, well nourished, no acute distress - HEENT HEENT: EOMI, PERRL, Normocephaly, Mucus Membranes Moist - Neck Neck exam: full ROM, trachea midline - Lungs Respiratory exam: CTAB - Cardiovascular Cardiovascular exam: RRR, +S1, +S2 - Abdomen Abdomen: Present: bowel sounds normal, non tender. Absent: guarding noted - Extremities Extremities exam: normal inspection Deep Tendon Reflex Grade: 2+ Normal (No clonus) - Cervix Dilation: 1 (per Dr. Oneil at the office) - Comments Comments: toco q4min 130/mod variability/15x15 accelerations, no decelerations Results Result Diagrams: 10/29/18 06:57 10/29/18 06:57 Abnormal lab results WBC 11.5 K/mcL (4.3-11.1) H D 10/27/18 13:00 RBC 3.66 M/mcL (3.82-4.97) L 10/27/18 13:00 Hgb 9.7 g/dL (11.5-15.4) L 10/27/18 13:00 Hct 31.0 % (35.3-44.9) L 10/27/18 13:00 MCH 26.5 pg (28.0-33.3) L 10/27/18 13:00 MCHC 31.3 g/dL (31.6-35.5) L 10/27/18 13:00 Nucleated RBCs/100 WBC 1.1 /100 WBC (0) H 10/27/18 13:00 Creatinine 0.52 mg/dL (0.60-1.20) L 10/27/18 13:00 AST 155 Units/L (13-39) H 10/27/18 13:00 ALT 176 Units/L (7-52) H 10/27/18 13:00 Ur Specific [place] 1.007 (1.010-1.025) L 10/27/18 13:00 Urine Blood Trace (Negative) H 10/27/18 13:00 Ur Squamous Epith Cells Many per lpf (None-Few) H 10/27/18 13:00 Protein/Creatinin Ratio 0.36 mg/mg (0.00-0.20) H 10/27/18 13:00 Urine Total Protein 21 mg/dL (1-14) H 10/27/18 13:00 All other labs normal. - VTE Reasons for not Prescribing Prophylaxis: Treatment not Indicated - Low risk for VTE - Attending Attestation I examined this patient and my medical decision-making was reviewed with the Resident Physician. I agree with the documented findings, disposition and treatment plan as described except to the extent set forth below. Reji Swanson MD,FACOG
[2018-10-27] MEDS ORDERED: Penicillin G Potassium 5,000,000 UNIT in 0.9 % Sodium Chloride Mini Bag 100 ML IVPB ONE (17:19)
[2018-10-27 17:30] LABS: Amphetamine Screen,Urine Negative ng/mL (Cutoff=1000); Barbiturate Screen,Urine Positive ng/mL (Cutoff=200); Benzodiazepines Screen,Urine Negative ng/mL (Cutoff=200); Cannabinoid Screen,Urine Negative ng/mL (Cutoff = 50); Cocaine Screen,Urine Negative ng/mL (Cutoff= 300); Opiate Screen,Urine Negative ng/mL (Cutoff=300); Phencyclidine Screen,Urine Negative ng/mL (Cutoff=25)
[2018-10-27] MEDS ORDERED: Ringers Solution, Lactated 1,000 ML IVC SCH (17:30)
--- NOTE | 2018-10-27 18:43 | Anesthesia Evaluation PreOp ---
Date of Encounter: 10/27/18 Time of Encounter: 18:41 - Past History Planned Operation: mac Cardiac History: HTN (Chronic HTN with superimposed preeclampsia) Pulmonary History: Asthma WEALTH MANAGEMENT MANAGER History: Denies Any Significant HX Other Medical History: Denies Any Significant HX Anesthesia History: No Prior Anesthetic Complications, Past Anesthesia (T&A and umbiliical herniorrhaphy) : Yes (35weeks, with previous Csection for transvers) Alcohol Use: none Drug use: none Medications and Allergies Ondansetron [Zofran ODT] 8 mg SL TID PRN #12 tab.rapdis 11/03/17 [Rx] Promethazine/Dextromethorphan [Promethazine-Dm Solution] 5 ml PO Q4-6H PRN #120 ml 11/03/17 [Rx] Vit Calc,Iron,Folic [ Vitamins] 1 each PO DAILY #30 tablet 04/08/18 [Rx] Amoxicillin [Amoxil] 500 mg PO BID 10/24/18 [History] Labetalol [Trandate] 400 mg PO BID 10/27/18 [History] Allergy/AdvReac Type Severity Reaction Status Date / Time No Known Allergies Allergy Verified 07/30/18 05:57 - Meds/Allergy Pre-op Review Medications Reviewed: Yes Allergies Reviewed: Yes Beta Blockers on Current Med List: Yes If Beta Blockers taken, Date/Time (Last Dose taken): this am Anesthesia Results - Labs 10/27/18 13:00 10/27/18 13:00 Anesthesia Exam O2 Sat Height 1.57 m Weight 83.9 kg BP 196/97 Height: 62 Weight: 184 - HEENT Pupil (Motor): Pupils equal Mallampati: II Teeth: Normal Oral Opening: Greater than 3 - WEALTH MANAGEMENT MANAGER LOC: Oriented WEALTH MANAGEMENT MANAGER Motor: Normal RUE, Normal LUE, Normal RLE, Normal LLE, Normal Face WEALTH MANAGEMENT MANAGER Sensory: Normal: RUE, LUE, RLE, LLE, Face - Cardiac Rhythm: Regular Murmur: None JVD: No Carotid Bruit: No - Pulmonary Breath Sounds: bilateral Clear Respiratory Effort: Symmetrical Anesthesia Assess/Plan ASA Score: 2 Level of consciousness: Cooperative Anesthetic Plan: Epidural Monitoring Plan: Standard Monitors
--- NOTE | 2018-10-27 19:22 | Event Note ---
<Bela Parmar - Last Filed: 10/27/18 19:20> Date of Encounter: 10/27/18 Time of Encounter: 19:20 Patient's blood pressures remain elevated despite additional 200mg Labetalol. Will give 4g bolus of Magnesium sulfate followed by Magnesium 2g/hour for seizure prophylaxis in the setting of pre-eclampsia. Continue to monitor reflexes and frequent blood pressures. Denies new or worsening headache, abdominal pain, changes in vision, confusion, or other new complaints. <Reji Swanson - Last Filed: 10/29/18 09:47> Date of Encounter: 10/29/18 I examined this patient and my medical decision-making was reviewed with the Resident Physician. I agree with the documented findings, disposition and treatment plan as described except to the extent set forth below. Reji Swanson MD,FACOG
[2018-10-27] MEDS ORDERED: Magnesium Sulfate 20 gm/500mL 20 GM/500 ML IV.SOLN IVC SCH (19:30)
[2018-10-27] MEDS ORDERED: Penicillin G Potassium 2,500,000 UNIT in 0.9 % Sodium Chloride 100 ML IVPB SCH (20:00)
--- NOTE | 2018-10-27 20:45 | OB Labor Progress Note ---
Date of Encounter: 10/29/18 Time of Encounter: 20:43 Labor Progress Note - Subjective Subjective: Most recent blood pressure 168/84. Patient denies any new symptoms at this time. Dr. Swanson attempted to place sanchez bulb without success. Patient's cervix closed, 25% effacement, -3 station. At this time will start pitocin to induce labor. - Vital Signs Vital Signs: BP 168/84 HR 58 - Cervix Cervix: 0/25%/-3 - Heart Tones Heart Tones: 130/moderate variability/reactive, no decelerations - Centre Hall Centre Hall: irregular - Plan Physician notified: Yes Plan: Sanchez bulb unable to be placed. Will start pitocin, titrate as necessary. Magnesium has been started for neuroprophylaxis Continue EFM and blood pressure monitoring - Attending Attestation I examined this patient and my medical decision-making was reviewed with the Resident Physician. I agree with the documented findings, disposition and treatment plan as described except to the extent set forth below. Reji Swanson MD,FACOG
[2018-10-27] MEDS ORDERED: Oxytocin 20 units/ LR 1000 mL 20 UNIT/1,000 ML BAG IVC SCH (21:00)
[2018-10-27 22:11] LABS: Basophils % 0.2 %; Hematocrit 32.8 % (35.3-44.9); Hemoglobin 10.2 g/dL (11.5-15.4); Immature Granulocytes % 2.3 % (0-4); Lymphocytes # 2.1 K/mcL (0.6-4.6); Lymphocytes % 19.5 %; Mean Corpuscular HGB Conc 31.1 g/dL (31.6-35.5); Mean Corpuscular Hemoglobin 26.4 pg (28.0-33.3); Mean Platelet Volume 11.2 fL (9.4-12.4); Monocytes # 0.9 K/mcL (0.0-1.3); Monocytes % 8.4 %; Neutrophils # 7.6 K/mcL (1.6-8.9); Nucleated Red Blood Cells 0.9 /100 WBC (0); Platelet Count 270 K/mcL (140-400); Red Blood Count 3.86 M/mcL (3.82-4.97); Red Cell Distribution Width 13.4 % (11.5-14.5); Segmented Neutrophils % 69.6 %
[2018-10-27 22:19] LABS: INR 0.9; Prothrombin Time 9.8 Seconds (9.4-12.1)
[2018-10-27 22:22] LABS: Activated Partial Thrombo Time 21.7 Seconds (26.0-36.0)
[2018-10-27 22:31] LABS: Alanine Aminotransferase 229 Units/L (7-52); Aspartate Amino Transferase 185 Units/L (13-39); BUN/Creatinine Ratio 22 (6-26); Blood Urea Nitrogen 11 mg/dL (6-20); Lactate Dehydrogenase 238 Units/L (140-271); Protein/Creatinine Ratio,Urine 0.41 mg/mg (0.00-0.20); Uric Acid 6.1 mg/dL (2.3-7.6); eGFR For Non-African Americans > 60 (> 60)
--- NOTE | 2018-10-27 22:46 | Event Note ---
<GhulamBela - Last Filed: 10/27/18 22:50> Date of Encounter: 10/27/18 Time of Encounter: 22:[address] Swanson. Platelet count remains stable, 270. PT/INR normal. LFTs increasing, AST 185, ALT 229. Will repeat [facility] labs again at 0600 tomorrow morning. Patient continues to complain of intermittent blurry, choppy vision since this morning. No new headaches, dizziness, confusion, abdominal pain. Category 1 tracing with moderate variability. Continue to monitor blood pressures, EFM closely. Continue mag and pitocin. <Reji Swanson - Last Filed: 10/28/18 00:13> Date of Encounter: 10/28/18 - Attending Attestation I examined this patient and my medical decision-making was reviewed with the Resident Physician. I agree with the documented findings, disposition and treatment plan as described except to the extent set forth below. Reji Swanson MD FACOG
[2018-10-27] MEDS ORDERED: Calcium Gluconate 1,000 MG/10 ML VIAL IVPB ONE (23:36)
--- NOTE | 2018-10-27 23:59 | OB Labor Progress Note ---
Date of Encounter: 10/28/18 Time of Encounter: 23:55 Labor Progress Note - Subjective Subjective: Patient's grandmother presented to the nursing station stating the patient was feeling groggy and having word finding difficulties. Patient also hyporeflexive. Cardiac and Respiratory exam normal. Mag sulfate was discontinued. Magnesium level was sent to lab. BP 169/91. After a few minutes, the patient was returning to baseline and states she feels less confused. After much discussion, patient agreed to section. Consent form signed. Risks and benefits discussed. - Cervix Cervix: 0-1cm - Heart Tones Heart Tones: 120/mod variability. category 1 tracing. - [place] Mendeltna: q6-7 min - Plan Physician notified: Yes Plan: Mag discontinued. Plan for section. Consent to be signed. Patient agreeable to plan of care. Log Chain Worker will be notified - Attending Attestation I examined this patient and my medical decision-making was reviewed with the Resident Physician. I agree with the documented findings, disposition and treatment plan as described except to the extent set forth below. Reji Swanson MD ,FACOG
[2018-10-28] MEDS ORDERED: Metoclopramide 10 MG/2 ML VIAL IVP ONE (00:01)
[2018-10-28] MEDS ORDERED: Famotidine 20 MG/2 ML VIAL IVP ONE (00:02)
[2018-10-28] MEDS ORDERED: CeFAZolin Premix DUPLEX 2,000 MG/50 ML BAG IVPB ONE (00:07)
[2018-10-28] MEDS ORDERED: *HR* Morphine Sulfate/PF 10 MG/10 ML AMPUL ONE (00:08)
[2018-10-28] MEDS ORDERED: *HR* FentaNYL (PF) 100 MCG/2 ML VIAL ONE (00:08)
[2018-10-28] MEDS ORDERED: Bupivacaine/PF 0.75% in Dex 2 ML AMPUL INFILT ONE (00:14)
[2018-10-28] MEDS ORDERED: *HR* Oxytocin 10 UNIT/ML VIAL IM ONE ×2 (00:39→00:50)
[2018-10-28] MEDS ORDERED: Ondansetron 4 MG/2 ML VIAL IVP ONE (00:45)
[2018-10-28] MEDS ORDERED: *HR* HYDROmorphone (PF) 1 MG/ML SYRINGE IVP PRN (00:45)
[2018-10-28] MEDS ORDERED: Ringers Solution, Lactated 1,000 ML ONE (00:50)
--- NOTE | 2018-10-28 01:39 | OB/GYN Procedure Note ---
Section - Date of procedure: 10/28/18 Preop diagnosis: desires repeat , other (Severe pre-eclampsia) Post-op diagnosis: same (double footling breech) Procedure: repeat low transverse Surgeon: Reji Silveira Blood Loss: [phone] Was there an claims assistant present: Yes Strawhat Inspector And Packer: Bela Parmar ([id number]) Anesthesiologist: Sean Arciniega Anesthesia Type: Spinal section complications: none Disposition: PACU Specimens: Placenta - Infant (s) Infant A Delivery Date: 10/28/18 Delivery Time: 00:42 Presentation: footling breech Gender: Male Viability: Viable Pounds: 4 Ounces: 8 Gram Weight: 2045 kg at 1 minute: 8 at 5 minutes: 9 Shoulder Dystocia: not encountered Placenta: complete extraction - Narrative Narrative: Patient was taken to the operating room. After satisfactory spinal anesthesia was achieved, patient was placed in supine position Mckeon catheter inserted and prepped and draped in usual manner. After appropriate timeout was obtained, patient's abdomen was entered through standard Maylard incision. The Juan Miguel retractor was placed. Peritoneum overlying the lower uterine segment was incised in U-shaped fashion. Uterine cavity was entered sharply and extended laterally. Fluid was clear. Double footling breech was noted. Legs, torso, arms, and head were delivered without difficulty. Infant suctioned upon delivery of the head. The umbilical cord double clamped and cut and the was handed to nursery staff for further evaluation. Placenta was removed from the uterus and sent to pathology for analysis. The uterus was closed with 0 Monocryl. After assurance hemostasis, the retractor was removed. Fascia was closed with a 0 Stratafex. Skin was reapproximated with a 3-0 Monocryl. Sterile dressing was applied. Patient did well was taken to recovery in satisfactory condition. Counts were correct.
[2018-10-28] MEDS ORDERED: Oxytocin 20 units/ LR 1000 mL 20 UNIT/1,000 ML BAG IVC SCH (03:29)
[2018-10-28] MEDS ORDERED: Simethicone 80 MG TAB.CHEW PO PRN (03:29)
[2018-10-28] MEDS ORDERED: Ondansetron ODT 4 MG TAB.RAPDIS SL PRN (03:29)
[2018-10-28] MEDS ORDERED: PROMETHAZINE PO PRN (03:29)
[2018-10-28] MEDS ORDERED: Metoclopramide 10 MG/2 ML VIAL IVP PRN (03:29)
[2018-10-28] MEDS ORDERED: Ondansetron 4 MG/2 ML VIAL IVP PRN (03:29)
[2018-10-28] MEDS ORDERED: Sennosides 8.6 MG TABLET PO PRN (03:29)
[2018-10-28] MEDS ORDERED: DEXTROMETHORPHAN PO PRN (03:29)
[2018-10-28] MEDS ORDERED: Magnesium Sulfate 20 gm/500mL 20 GM/500 ML IV.SOLN IVC SCH (03:29)
[2018-10-28] MEDS ORDERED: *HR* Nalbuphine 10 MG/ML AMPUL IV ONE (04:15)
[2018-10-28] MEDS ORDERED: Calcium Gluconate 1,000 MG/10 ML VIAL IVPB ONE (05:24)
--- NOTE | 2018-10-28 06:59 | Anesthesia Evaluation Post Op ---
Date of Encounter: 10/28/18 Time of Encounter: 06:58 - Vital Signs Vital Signs: Vital Signs/O2 Sat, Most Current Temp Pulse Resp BP Pulse Ox 97.7 F 67 16 149/91 97 10/28/18 05:40 10/28/18 05:40 10/28/18 05:40 10/28/18 05:40 10/28/18 05:40 - Lungs Lungs: Clear Ascult./Percussion - Airway Airway: Non-obstructed - Cardiovascular Regular Rate - Mental Status Mental Status: Alert & Oriented, Answers Appropriately - Pain Pain Scale: 2 - Nausea Vomiting Nausea Vomiting: Not Present - Hydration Hydration: Tolerates oral liquids, Mckeon catheter
[2018-10-28 07:15] LABS: Basophils % 0.1 %; Hematocrit 32.7 % (35.3-44.9); Hemoglobin 10.3 g/dL (11.5-15.4); Immature Granulocytes % 1.1 % (0-4); Lymphocytes # 1.9 K/mcL (0.6-4.6); Lymphocytes % 11.8 %; Mean Corpuscular HGB Conc 31.5 g/dL (31.6-35.5); Mean Corpuscular Hemoglobin 26.5 pg (28.0-33.3); Mean Corpuscular Volume 84.3 fL (83.0-100.0); Mean Platelet Volume 11.4 fL (9.4-12.4); Monocytes # 1.3 K/mcL (0.0-1.3); Monocytes % 8.1 %; Neutrophils # 12.4 K/mcL (1.6-8.9); Nucleated Red Blood Cells 0.4 /100 WBC (0); Platelet Count 287 K/mcL (140-400); Red Blood Count 3.88 M/mcL (3.82-4.97); Red Cell Distribution Width 13.5 % (11.5-14.5); Segmented Neutrophils % 78.9 %
[2018-10-28 07:22] LABS: INR 0.9; Prothrombin Time 9.7 Seconds (9.4-12.1)
[2018-10-28 07:25] LABS: Activated Partial Thrombo Time 22.8 Seconds (26.0-36.0)
[2018-10-28 07:32] LABS: Protein/Creatinine Ratio,Urine 0.3 mg/mg (0.00-0.20)
[2018-10-28 07:41] LABS: Alanine Aminotransferase 207 Units/L (7-52); Aspartate Amino Transferase 147 Units/L (13-39); BUN/Creatinine Ratio 18 (6-26); Blood Urea Nitrogen 10 mg/dL (6-20); Lactate Dehydrogenase 233 Units/L (140-271); Uric Acid 6.1 mg/dL (2.3-7.6); eGFR For Non-African Americans > 60 (> 60)
[2018-10-28] MEDS ORDERED: NON-FORMULARY MEDICATION 1 EACH EACH (Prenatal Vit Calc,Iron,Folic [Prenatal Vitamins] 1 E PO SCH (09:00)
--- NOTE | 2018-10-28 09:00 | OB/GYN Progress Note ---
Date of Encounter: 10/28/18 Time of Encounter: 08:57 - Assessment and Plan (1) Status post repeat low transverse section Current Visit: Yes Status: Acute Continue routine postop/ care (2) Chronic hypertension Current Visit: Yes Status: Acute Magnesium sulfate to be discontinued at 0042 Will reevaluated BP medications and doses after next BP following labetalol do se Dr. Talbert updated on BP and exam (3) Elevated liver enzymes Current Visit: Yes Status: Acute repeat PIH labs in Am Subjective - Subjective Principal diagnosis: Delivery day Interval history: Patient was a repeat c/s approximately 9 hours ago. Patient denies any pain at this time. Magnesium sulfate is infusing at 2grams per hour. Sanchez catheter draining clear yellow urine. Patient is breast feeding infant. BPs and labs reviewed with Dr. Talbert. Patient reports: pain well controlled, other (Patient has sanchez catheter draining, tolerating Clear liquid diet) : doing well, nursing well Objective - Latest Vital Signs Latest vital signs: Vital Signs Temp Pulse Resp BP Pulse Ox 10/28/18 08:42 58 16 164/104 10/28/18 08:06 97.7 F 59 16 97 10/28/18 07:43 59 12 143/94 10/28/18 06:42 97.8 F 64 20 154/93 97 10/28/18 06:40 64 20 154/93 10/28/18 05:40 97.7 F 67 16 149/91 97 10/28/18 04:40 97.7 F 65 20 156/96 97 10/28/18 04:10 98.5 F 58 20 151/95 98 10/28/18 03:30 98.6 F 60 16 166/99 97 Intake and Output 10/27/18 10/28/18 10/28/18 23:59 07:59 15:59 Intake Total 200 / 200 Output Total 1525 / 1525 100 / 100 Balance -1325 / -1325 -100 / -100 Intake: Oral 200 / 200 Output: Urine 625 / 625 100 / 100 Catheter 900 / 900 - Exam Lungs: bilateral: normal Chest: Normal S1, Normal S2 Extremities: Present: normal, other (2+ DTRs, no clonus) Abdomen: Present: normal appearance, soft Uterus: Present: normal, firm Uterus Position: 1 Finger Below Umbilicus, Midline Comments: NATALIE dressing dry and intact - Labs Labs: Laboratory Results - last 24 hr 10/27/18 10/27/18 10/27/18 13:00 13:00 13:00 WBC 11.5 H D RBC 3.66 L Hgb 9.7 L Hct 31.0 L MCV 84.7 MCH 26.5 L MCHC 31.3 L RDW 13.2 Plt Count 272 MPV 11.4 Immature Gran % 2.1 Seg Neutrophils % 77.4 Lymphocytes % 14.1 Monocytes % 6.2 Eosinophils % 0.0 Basophils % 0.2 Neutrophils # 8.9 Lymphocytes # 1.6 Monocytes # 0.7 Eosinophils # 0.0 Basophils # 0.0 Nucleated RBCs/100 WBC 1.1 H PT INR APTT BUN 10 Creatinine 0.52 L Est GFR ( Amer) > 60 Est GFR (Non-Af Amer) > 60 BUN/Creatinine Ratio 19 Uric Acid 6.6 Magnesium AST 155 H ALT 176 H Lactate Dehydrogenase 245 Urine Color Urine Clarity Urine pH Ur Specific [place] Urine Protein Urine Glucose (UA) Urine Ketones Urine Blood Urine Nitrite Urine Bilirubin Urine Urobilinogen Ur Leukocyte Esterase Urine Microscopic RBC Urine Microscopic WBC Ur Squamous Epith Cells Urine Bacteria Hyaline Casts Ur Culture Indicated? Urine Creatinine Protein/Creatinin Ratio Urine Total Protein Urine Opiates Screen Negative Ur Barbiturates Screen Positive H Ur Phencyclidine Scrn Negative Ur Amphetamines Screen Negative U Benzodiazepines Scrn Negative Urine Cocaine Screen Negative U Marijuana (THC) Screen Negative Ur Drug Screen Interp See Below Blood Type Antibody Screen 10/27/18 10/27/18 10/27/18 13:00 13:00 13:00 WBC RBC Hgb Hct MCV MCH MCHC RDW Plt Count MPV Immature Gran % Seg Neutrophils % Lymphocytes % Monocytes % Eosinophils % Basophils % Neutrophils # Lymphocytes # Monocytes # Eosinophils # Basophils # Nucleated RBCs/100 WBC PT INR APTT BUN Creatinine Est GFR ( Amer) Est GFR (Non-Af Amer) BUN/Creatinine Ratio Uric Acid Magnesium AST ALT Lactate Dehydrogenase Urine Color Yellow Urine Clarity Clear Urine pH 6.5 Ur Specific [place] 1.007 L Urine Protein Negative Urine Glucose (UA) Normal Urine Ketones Negative Urine Blood Trace H Urine Nitrite Negative Urine Bilirubin Negative Urine Urobilinogen Normal Ur Leukocyte Esterase Negative Urine Microscopic RBC 0-3 Urine Microscopic WBC 0-3 Ur Squamous Epith Cells Many H Urine Bacteria None Seen Hyaline Casts None Seen Ur Culture Indicated? NO Urine Creatinine 59 Protein/Creatinin Ratio 0.36 H Urine Total Protein 21 H Urine Opiates Screen Ur Barbiturates Screen Ur Phencyclidine Scrn Ur Amphetamines Screen U Benzodiazepines Scrn Urine Cocaine Screen U Marijuana (THC) Screen Ur Drug Screen Inter Blood Type TNP Antibody Screen TNP 10/27/18 10/27/18 10/27/18 21:40 21:40 21:40 WBC 10.8 RBC 3.86 Hgb 10.2 L Hct 32.8 L MCV 85.0 MCH 26.4 L MCHC 31.1 L RDW 13.4 Plt Count 270 MPV 11.2 Immature Gran % 2.3 Seg Neutrophils % 69.6 Lymphocytes % 19.5 Monocytes % 8.4 Eosinophils % 0.0 Basophils % 0.2 Neutrophils # 7.6 Lymphocytes # 2.1 Monocytes # 0.9 Eosinophils # 0.0 Basophils # 0.0 Nucleated RBCs/100 WBC 0.9 H PT INR APTT BUN 11 Creatinine 0.51 L Est GFR ( Amer) > 60 Est GFR (Non-Af Amer) > 60 BUN/Creatinine Ratio 22 Uric Acid 6.1 Magnesium AST 185 H ALT 229 H Lactate Dehydrogenase 238 Urine Color Urine Clarity Urine pH Ur Specific [place] Urine Protein Urine Glucose (UA) Urine Ketones Urine Blood Urine Nitrite Urine Bilirubin Urine Urobilinogen Ur Leukocyte Esterase Urine Microscopic RBC Urine Microscopic WBC Ur Squamous Epith Cells Urine Bacteria Hyaline Casts Ur Culture Indicated? Urine Creatinine 42 Protein/Creatinin Ratio 0.41 H Urine Total Protein 17 H Urine Opiates Screen Ur Barbiturates Screen Ur Phencyclidine Scrn Ur Amphetamines Screen U Benzodiazepines Scrn Urine Cocaine Screen U Marijuana (THC) Screen Ur Drug Screen Inter Blood Type Antibody Screen 10/27/18 10/27/18 10/28/18 21:40 23:42 06:39 WBC RBC Hgb Hct MCV MCH MCHC RDW Plt Count MPV Immature Gran % Seg Neutrophils % Lymphocytes % Monocytes % Eosinophils % Basophils % Neutrophils # Lymphocytes # Monocytes # Eosinophils # Basophils # Nucleated RBCs/100 WBC PT 9.8 9.7 INR 0.9 0.9 APTT 21.7 L 22.8 L BUN Creatinine Est GFR ( Amer) Est GFR (Non-Af Amer) BUN/Creatinine Ratio Uric Acid Magnesium 4.6 H AST ALT Lactate Dehydrogenase Urine Color Urine Clarity Urine pH Ur Specific [place] Urine Protein Urine Glucose (UA) Urine Ketones Urine Blood Urine Nitrite Urine Bilirubin Urine Urobilinogen Ur Leukocyte Esterase Urine Microscopic RBC Urine Microscopic WBC Ur Squamous Epith Cells Urine Bacteria Hyaline Casts Ur Culture Indicated? Urine Creatinine Protein/Creatinin Ratio Urine Total Protein Urine Opiates Screen Ur Barbiturates Screen Ur Phencyclidine Scrn Ur Amphetamines Screen U Benzodiazepines Scrn Urine Cocaine Screen U Marijuana (THC) Screen Ur Drug Screen Inter Blood Type Antibody Screen 10/28/18 10/28/18 10/28/18 06:39 06:39 06:46 WBC 15.7 H RBC 3.88 Hgb 10.3 L Hct 32.7 L MCV 84.3 MCH 26.5 L MCHC 31.5 L RDW 13.5 Plt Count 287 MPV 11.4 Immature Gran % 1.1 Seg Neutrophils % 78.9 Lymphocytes % 11.8 Monocytes % 8.1 Eosinophils % 0.0 Basophils % 0.1 Neutrophils # 12.4 H Lymphocytes # 1.9 Monocytes # 1.3 Eosinophils # 0.0 Basophils # 0.0 Nucleated RBCs/100 WBC 0.4 H PT INR APTT BUN 10 Creatinine 0.55 L Est GFR ( Amer) > 60 Est GFR (Non-Af Amer) > 60 BUN/Creatinine Ratio 18 Uric Acid 6.1 Magnesium AST 147 H ALT 207 H Lactate Dehydrogenase 233 Urine Color Urine Clarity Urine pH Ur Specific [place] Urine Protein Urine Glucose (UA) Urine Ketones Urine Blood Urine Nitrite Urine Bilirubin Urine Urobilinogen Ur Leukocyte Esterase Urine Microscopic RBC Urine Microscopic WBC Ur Squamous Epith Cells Urine Bacteria Hyaline Casts Ur Culture Indicated? Urine Creatinine 47 Protein/Creatinin Ratio 0.30 H Urine Total Protein 14 Urine Opiates Screen Ur Barbiturates Screen Ur Phencyclidine Scrn Ur Amphetamines Screen U Benzodiazepines Scrn Urine Cocaine Screen U Marijuana (THC) Screen Ur Drug Screen Interp Blood Type Antibody Screen
[2018-10-28] MEDS: Ibuprofen 600 MG TABLET PO PRN (15:21)
[2018-10-28] MEDS: *HR* OxyCODONE/APAP 5/325 TABLET PO PRN (20:40)
[2018-10-28] MEDS: NIFEdipine XL (24 HR) 30 MG TAB.ER.24 PO SCH (23:16)
[2018-10-29] MEDS ORDERED: NIFEdipine XL (24 HR) 30 MG TAB.ER.24 PO STA (00:15)
[2018-10-29 07:29] LABS: Basophils % 0.1 %; Eosinophils % 0.2 %; Hematocrit 32.7 % (35.3-44.9); Hemoglobin 10.4 g/dL (11.5-15.4); Immature Granulocytes % 0.5 % (0-4); Lymphocytes # 2.2 K/mcL (0.6-4.6); Lymphocytes % 23.1 %; Mean Corpuscular HGB Conc 31.8 g/dL (31.6-35.5); Mean Corpuscular Hemoglobin 26.5 pg (28.0-33.3); Mean Corpuscular Volume 83.2 fL (83.0-100.0); Mean Platelet Volume 11.2 fL (9.4-12.4); Monocytes # 0.6 K/mcL (0.0-1.3); Monocytes % 6.2 %; Neutrophils # 6.6 K/mcL (1.6-8.9); Nucleated Red Blood Cells 0.2 /100 WBC (0); Platelet Count 267 K/mcL (140-400); Red Blood Count 3.93 M/mcL (3.82-4.97); Red Cell Distribution Width 13.4 % (11.5-14.5); Segmented Neutrophils % 69.9 %
[2018-10-29 07:43] LABS: Alanine Aminotransferase 132 Units/L (7-52); Aspartate Amino Transferase 51 Units/L (13-39); BUN/Creatinine Ratio 18 (6-26); Blood Urea Nitrogen 9 mg/dL (6-20); Lactate Dehydrogenase 173 Units/L (140-271); eGFR For Non-African Americans > 60 (> 60)
[2018-10-29] MEDS: NIFEdipine XL (24 HR) 30 MG TAB.ER.24 PO SCH (08:33)
[2018-10-29] MEDS: *HR* OxyCODONE/APAP 5/325 TABLET PO PRN (08:35)
[2018-10-29] MEDS: Prenatal Vit/FA 1 EACH TABLET PO SCH (08:35)
--- NOTE | 2018-10-29 10:13 | OB/GYN Progress Note ---
Date of Encounter: 10/29/18 Time of Encounter: 09:45 - Assessment and Plan (1) Status post repeat low transverse section Current Visit: Yes Status: Acute Meeting day 1 milestones Pain well controlled Passing flatus, voiding well Normal affect Tolerating diet Ambulating without difficulty Anticipate discharge home tomorrow Would like a tubal ligation (2) (infant) Current Visit: Yes Status: Acute Going well. consultation if needed (3) Chronic hypertension Current Visit: Yes Status: Acute S/p Magnesium, discontinued yesterday Blood pressures better controlled Continue with labetalol 400mg BID, Methyldopa 250mg tid and Nifedipine 30mg XL qd (4) Elevated liver enzymes Current Visit: Yes Status: Acute LFTs improving No abdominal pain Will repeat PIH labs tomorrow (5) Red blood cell antibody positive Current Visit: No Status: Chronic Patient with anti-C antibody Recent titer 1:4 Subjective - Subjective Principal diagnosis: delivery day 1 Interval history: Patient is POD#1 s/p primary section. Blood pressures better controlled. Patient states she feels much better after receiving plenty of sleep. Complains of mild headache and lower abdominal pain, which she just received pain medication. LFTs improving. Voiding well, passing flatus. Tolerating diet. Affect normal. . Patient reports: appetite normal, voiding normally, ambulating normally [place]: doing well Objective - Latest Vital Signs Latest vital signs: Vital Signs Temp Pulse Pulse Resp BP Pulse Ox 10/29/18 08:20 98.1 F 83 16 138/91 98 10/29/18 02:30 98.3 F 70 16 126/83 98 10/29/18 01:12 60 144/89 10/29/18 01:10 60 150/96 10/29/18 01:05 186/108 10/29/18 00:05 98.9 F 52 16 171/100 97 10/28/18 22:48 50 180/106 10/28/18 22:45 171/105 10/28/18 21:45 174/104 10/28/18 21:29 64 10/28/18 20:20 97.6 F 61 16 174/104 99 10/28/18 16:19 97.9 F 68 16 143/90 97 10/28/18 14:40 155/108 10/28/18 13:40 71 16 146/94 10/28/18 12:39 64 12 145/100 10/28/18 11:40 66 20 148/96 10/28/18 10:35 74 20 145/99 Intake and Output 10/28/18 10/29/18 10/29/18 23:59 07:59 15:59 Intake Total 1100 / 1100 Output Total 750 / 750 2000 / 2000 3000 / 3000 Balance -750 / -750 -900 / -900 -3000 / -3000 Intake: Oral 1100 / 1100 Output: Urine 400 / 400 2000 / 2000 3000 / 3000 Catheter 350 / 350 Other: Weight 79.832 kg Patient Weight 10/29/18 23:59 Weight 79.832 kg - Exam Lungs: bilateral: normal (no crackles or wheezing) Chest: Normal S1 (RRR), Normal S2 Extremities: Present: normal. Absent: edema Abdomen: Present: normal appearance (incision site covered with NATALIE, no gross bleeding, no purulent drainage.), soft. Absent: hernia, distention Uterus: Present: normal, firm Uterus Position: 2 Fingers Below Umbilicus, Midline Comments: Reflexes 2+, no clonus General: alert, no acute distress Neurologic: AAOx3, normal strength - Labs Labs: Laboratory Results - last 24 hr 10/29/18 10/29/18 06:57 06:57 WBC 9.4 RBC 3.93 Hgb 10.4 L Hct 32.7 L MCV 83.2 MCH 26.5 L MCHC 31.8 RDW 13.4 Plt Count 267 MPV 11.2 Immature Gran % 0.5 Seg Neutrophils % 69.9 Lymphocytes % 23.1 Monocytes % 6.2 Eosinophils % 0.2 Basophils % 0.1 Neutrophils # 6.6 Lymphocytes # 2.2 Monocytes # 0.6 Eosinophils # 0.0 Basophils # 0.0 Nucleated RBCs/100 WBC 0.2 H BUN 9 Creatinine 0.50 L Est GFR ( Amer) > 60 Est GFR (Non-Af Amer) > 60 BUN/Creatinine Ratio 18 Uric Acid 6.0 AST 51 H ALT 132 H Lactate Dehydrogenase 173
[2018-10-29] MEDS: Ibuprofen 600 MG TABLET PO PRN (17:25)
[2018-10-30 03:21] LABS: Basophils % 0.2 %; Eosinophils # 0.1 K/mcL (0.0-0.6); Eosinophils % 0.6 %; Hematocrit 31.3 % (35.3-44.9); Hemoglobin 9.7 g/dL (11.5-15.4); Immature Granulocytes % 0.8 % (0-4); Immature Platelets 5.7 % (1.1-6.1); Lymphocytes # 3.2 K/mcL (0.6-4.6); Lymphocytes % 27.6 %; Mean Corpuscular Hemoglobin 26.1 pg (28.0-33.3); Mean Corpuscular Volume 84.1 fL (83.0-100.0); Mean Platelet Volume 10.7 fL (9.4-12.4); Monocytes # 0.8 K/mcL (0.0-1.3); Monocytes % 6.7 %; Neutrophils # 7.4 K/mcL (1.6-8.9); Platelet Count 270 K/mcL (140-400); Red Blood Count 3.72 M/mcL (3.82-4.97); Red Cell Distribution Width 13.6 % (11.5-14.5); Segmented Neutrophils % 64.1 %
[2018-10-30 03:30] LABS: Alanine Aminotransferase 87 Units/L (7-52); Aspartate Amino Transferase 23 Units/L (13-39); BUN/Creatinine Ratio 30 (6-26); Blood Urea Nitrogen 18 mg/dL (6-20); Lactate Dehydrogenase 136 Units/L (140-271); Uric Acid 6.2 mg/dL (2.3-7.6); eGFR For Non-African Americans > 60 (> 60)
[2018-10-30] MEDS: NIFEdipine XL (24 HR) 30 MG TAB.ER.24 PO SCH (08:16)
[2018-10-30] MEDS: Ibuprofen 600 MG TABLET PO PRN (08:17)
[2018-10-30] MEDS: Prenatal Vit/FA 1 EACH TABLET PO SCH (08:17)
--- NOTE | 2018-10-30 09:58 | OB/GYN Progress Note ---
Date of Encounter: 10/30/18 Time of Encounter: 09:56 Subjective - Subjective Principal diagnosis: s/p RLTCS Objective - Latest Vital Signs Latest vital signs: Vital Signs Temp Pulse Resp BP Pulse Ox 10/30/18 07:40 98.6 F 78 16 168/97 97 10/30/18 03:38 98.3 F 72 14 164/98 96 10/29/18 23:58 98.4 F 82 14 143/92 97 10/29/18 19:57 98.5 F 84 16 142/93 98 10/29/18 15:58 98.9 F 82 16 136/87 96 10/29/18 12:01 97.8 F 78 16 127/82 97 Intake and Output 10/29/18 10/30/18 10/30/18 23:59 07:59 15:59 Intake Total 300 / 300 240 / 240 Output Total 600 / 600 Balance -600 / -600 300 / 300 240 / 240 Intake: Oral 300 / 300 240 / 240 Output: Urine 600 / 600 Other: Meal Breakfast Percent of Meal Consumed 100% Weight 76.385 kg - Labs Labs: Laboratory Results - last 24 hr 10/30/18 10/30/18 02:42 02:42 WBC 11.5 H RBC 3.72 L Hgb 9.7 L Hct 31.3 L MCV 84.1 MCH 26.1 L MCHC 31.0 L RDW 13.6 Plt Count 270 MPV 10.7 Immature Gran % 0.8 Seg Neutrophils % 64.1 Lymphocytes % 27.6 Monocytes % 6.7 Eosinophils % 0.6 Basophils % 0.2 Neutrophils # 7.4 Lymphocytes # 3.2 Monocytes # 0.8 Eosinophils # 0.1 Basophils # 0.0 Immature Plt Fraction 5.7 BUN 18 Creatinine 0.60 Est GFR ( Amer) > 60 Est GFR (Non-Af Amer) > 60 BUN/Creatinine Ratio 30 H Uric Acid 6.2 AST 23 ALT 87 H Lactate Dehydrogenase 136 L
[2018-10-30 12:26] VITALS: BP 115/78
--- NOTE | 2018-10-30 13:32 | Discharge Summary ---
Date of Encounter: 10/30/18 Time of Encounter: 11:30 - Discharge Diagnosis (1) () Priority: Secondary Status: Acute Comments: Community resources provided (2) Chronic hypertension Priority: Secondary Status: Acute Comments: Continue blood pressure medications as discussed with Dr. Malone. Follow-up on Tuesday as scheduled (3) Status post repeat low transverse section Priority: Primary Status: Acute Comments: Feeling well Tolerating regular diet Pain well-controlled with by mouth pain meds Ambulating independently Voiding independently Lochia light Passing flatus, no BM yet Vital signs stable Discharge home today - Discharge Medications Prescriptions: Ibuprofen [Motrin] 600 mg PO Q6HR PRN #30 tablet PRN Reason: Cramping OxyCODONE/APAP 5/325 [Percocet 5/325 MG] 1 each PO Q6HR PRN 5 Days #20 tablet PRN Reason: Moderate pain 4-6 Docusate [Colace] 100 mg PO BID #30 capsule Labetalol HCl 400 mg PO BID #28 tablet Methyldopa 250 mg PO BID #28 tablet NIFEdipine XL (24 HR) [Procardia XL] 30 mg PO DAILY #14 tablet.er Home Medications: Ondansetron [Zofran ODT] 8 mg SL TID PRN #12 tab.rapdis 11/03/17 [Rx] Promethazine/Dextromethorphan [Promethazine-Dm Solution] 5 ml PO Q4-6H PRN #120 ml 11/03/17 [Rx] Vit Calc,Iron,Folic [ Vitamins] 1 each PO DAILY #30 tablet 04/08/18 [Rx] Amoxicillin [Amoxil] 500 mg PO BID 10/24/18 [History] Labetalol [Trandate] 400 mg PO BID 10/27/18 [History] Docusate [Colace] 100 mg PO BID #30 capsule 10/30/18 [Rx] Ibuprofen [Motrin] 600 mg PO Q6HR PRN #30 tablet 10/30/18 [Rx] Labetalol HCl 400 mg PO BID #28 tablet 10/30/18 [Rx] Methyldopa 250 mg PO BID #28 tablet 10/30/18 [Rx] NIFEdipine XL (24 HR) [Procardia XL] 30 mg PO DAILY #14 tablet.er 10/30/18 [Rx] OxyCODONE/APAP 5/325 [Percocet 5/325 MG] 1 each PO Q6HR PRN 5 Days #20 tablet 10/30/18 [Rx] Allergies/Adverse Reactions: Allergy/AdvReac Type Severity Reaction Status Date / Time No Known Allergies Allergy Verified 07/30/18 05:57 Data Procedures and tests throughout hospitalization: Laboratory Tests 10/27/18 10/27/18 10/27/18 13:00 13:00 13:00 WBC 11.5 H D RBC 3.66 L Hgb 9.7 L Hct 31.0 L MCV 84.7 MCH 26.5 L MCHC 31.3 L RDW 13.2 Plt Count 272 MPV 11.4 Immature Gran % 2.1 Seg Neutrophils % 77.4 Lymphocytes % 14.1 Monocytes % 6.2 Eosinophils % 0.0 Basophils % 0.2 Neutrophils # 8.9 Lymphocytes # 1.6 Monocytes # 0.7 Eosinophils # 0.0 Basophils # 0.0 Nucleated RBCs/100 WBC 1.1 H Immature Plt Fraction PT INR APTT BUN 10 Creatinine 0.52 L Est GFR ( Amer) > 60 Est GFR (Non-Af Amer) > 60 BUN/Creatinine Ratio 19 Uric Acid 6.6 Magnesium AST 155 H ALT 176 H Lactate Dehydrogenase 245 Urine Color Urine Clarity Urine pH Ur Specific [place] Urine Protein Urine Glucose (UA) Urine Ketones Urine Blood Urine Nitrite Urine Bilirubin Urine Urobilinogen Ur Leukocyte Esterase Urine Microscopic RBC Urine Microscopic WBC Ur Squamous Epith Cells Urine Bacteria Hyaline Casts Ur Culture Indicated? Urine Creatinine Protein/Creatinin Ratio Urine Total Protein Urine Opiates Screen Negative Ur Barbiturates Screen Positive H Ur Phencyclidine Scrn Negative Ur Amphetamines Screen Negative U Benzodiazepines Scrn Negative Urine Cocaine Screen Negative U Marijuana (THC) Screen Negative Ur Drug Screen Interp See Below Blood Type Antibody Screen 10/27/18 10/27/18 10/27/18 13:00 13:00 13:00 WBC RBC Hgb Hct MCV MCH MCHC RDW Plt Count MPV Immature Gran % Seg Neutrophils % Lymphocytes % Monocytes % Eosinophils % Basophils % Neutrophils # Lymphocytes # Monocytes # Eosinophils # Basophils # Nucleated RBCs/100 WBC Immature Plt Fraction PT INR APTT BUN Creatinine Est GFR ( Amer) Est GFR (Non-Af Amer) BUN/Creatinine Ratio Uric Acid Magnesium AST ALT Lactate Dehydrogenase Urine Color Yellow Urine Clarity Clear Urine pH 6.5 Ur Specific [place] 1.007 L Urine Protein Negative Urine Glucose (UA) Normal Urine Ketones Negative Urine Blood Trace H Urine Nitrite Negative Urine Bilirubin Negative Urine Urobilinogen Normal Ur Leukocyte Esterase Negative Urine Microscopic RBC 0-3 Urine Microscopic WBC 0-3 Ur Squamous Epith Cells Many H Urine Bacteria None Seen Hyaline Casts None Seen Ur Culture Indicated? NO Urine Creatinine 59 Protein/Creatinin Ratio 0.36 H Urine Total Protein 21 H Urine Opiates Screen Ur Barbiturates Screen Ur Phencyclidine Scrn Ur Amphetamines Screen U Benzodiazepines Scrn Urine Cocaine Screen U Marijuana (THC) Screen Ur Drug Screen Inter Blood Type TNP Antibody Screen TNP 10/27/18 10/27/18 10/27/18 21:40 21:40 21:40 WBC 10.8 RBC 3.86 Hgb 10.2 L Hct 32.8 L MCV 85.0 MCH 26.4 L MCHC 31.1 L RDW 13.4 Plt Count 270 MPV 11.2 Immature Gran % 2.3 Seg Neutrophils % 69.6 Lymphocytes % 19.5 Monocytes % 8.4 Eosinophils % 0.0 Basophils % 0.2 Neutrophils # 7.6 Lymphocytes # 2.1 Monocytes # 0.9 Eosinophils # 0.0 Basophils # 0.0 Nucleated RBCs/100 WBC 0.9 H Immature Plt Fraction PT INR APTT BUN 11 Creatinine 0.51 L Est GFR ( Amer) > 60 Est GFR (Non-Af Amer) > 60 BUN/Creatinine Ratio 22 Uric Acid 6.1 Magnesium AST 185 H ALT 229 H Lactate Dehydrogenase 238 Urine Color Urine Clarity Urine pH Ur Specific [place] Urine Protein Urine Glucose (UA) Urine Ketones Urine Blood Urine Nitrite Urine Bilirubin Urine Urobilinogen Ur Leukocyte Esterase Urine Microscopic RBC Urine Microscopic WBC Ur Squamous Epith Cells Urine Bacteria Hyaline Casts Ur Culture Indicated? Urine Creatinine 42 Protein/Creatinin Ratio 0.41 H Urine Total Protein 17 H Urine Opiates Screen Ur Barbiturates Screen Ur Phencyclidine Scrn Ur Amphetamines Screen U Benzodiazepines Scrn Urine Cocaine Screen U Marijuana (THC) Screen Ur Drug Screen Inter Blood Type Antibody Screen 10/27/18 10/27/18 10/28/18 21:40 23:42 06:39 WBC RBC Hgb Hct MCV MCH MCHC RDW Plt Count MPV Immature Gran % Seg Neutrophils % Lymphocytes % Monocytes % Eosinophils % Basophils % Neutrophils # Lymphocytes # Monocytes # Eosinophils # Basophils # Nucleated RBCs/100 WBC Immature Plt Fraction PT 9.8 9.7 INR 0.9 0.9 APTT 21.7 L 22.8 L BUN Creatinine Est GFR ( Amer) Est GFR (Non-Af Amer) BUN/Creatinine Ratio Uric Acid Magnesium 4.6 H AST ALT Lactate Dehydrogenase Urine Color Urine Clarity Urine pH Ur Specific [place] Urine Protein Urine Glucose (UA) Urine Ketones Urine Blood Urine Nitrite Urine Bilirubin Urine Urobilinogen Ur Leukocyte Esterase Urine Microscopic RBC Urine Microscopic WBC Ur Squamous Epith Cells Urine Bacteria Hyaline Casts Ur Culture Indicated? Urine Creatinine Protein/Creatinin Ratio Urine Total Protein Urine Opiates Screen Ur Barbiturates Screen Ur Phencyclidine Scrn Ur Amphetamines Screen U Benzodiazepines Scrn Urine Cocaine Screen U Marijuana (THC) Screen Ur Drug Screen Inter Blood Type Antibody Screen 10/28/18 10/28/18 10/28/18 06:39 06:39 06:46 WBC 15.7 H RBC 3.88 Hgb 10.3 L Hct 32.7 L MCV 84.3 MCH 26.5 L MCHC 31.5 L RDW 13.5 Plt Count 287 MPV 11.4 Immature Gran % 1.1 Seg Neutrophils % 78.9 Lymphocytes % 11.8 Monocytes % 8.1 Eosinophils % 0.0 Basophils % 0.1 Neutrophils # 12.4 H Lymphocytes # 1.9 Monocytes # 1.3 Eosinophils # 0.0 Basophils # 0.0 Nucleated RBCs/100 WBC 0.4 H Immature Plt Fraction PT INR APTT BUN 10 Creatinine 0.55 L Est GFR ( Amer) > 60 Est GFR (Non-Af Amer) > 60 BUN/Creatinine Ratio 18 Uric Acid 6.1 Magnesium AST 147 H ALT 207 H Lactate Dehydrogenase 233 Urine Color Urine Clarity Urine pH Ur Specific [place] Urine Protein Urine Glucose (UA) Urine Ketones Urine Blood Urine Nitrite Urine Bilirubin Urine Urobilinogen Ur Leukocyte Esterase Urine Microscopic RBC Urine Microscopic WBC Ur Squamous Epith Cells Urine Bacteria Hyaline Casts Ur Culture Indicated? Urine Creatinine 47 Protein/Creatinin Ratio 0.30 H Urine Total Protein 14 Urine Opiates Screen Ur Barbiturates Screen Ur Phencyclidine Scrn Ur Amphetamines Screen U Benzodiazepines Scrn Urine Cocaine Screen U Marijuana (THC) Screen Ur Drug Screen Inter Blood Type Antibody Screen 10/29/18 10/29/18 10/30/18 06:57 06:57 02:42 WBC 9.4 11.5 H RBC 3.93 3.72 L Hgb 10.4 L 9.7 L Hct 32.7 L 31.3 L MCV 83.2 84.1 MCH 26.5 L 26.1 L MCHC 31.8 31.0 L RDW 13.4 13.6 Plt Count 267 270 MPV 11.2 10.7 Immature Gran % 0.5 0.8 Seg Neutrophils % 69.9 64.1 Lymphocytes % 23.1 27.6 Monocytes % 6.2 6.7 Eosinophils % 0.2 0.6 Basophils % 0.1 0.2 Neutrophils # 6.6 7.4 Lymphocytes # 2.2 3.2 Monocytes # 0.6 0.8 Eosinophils # 0.0 0.1 Basophils # 0.0 0.0 Nucleated RBCs/100 WBC 0.2 H Immature Plt Fraction 5.7 PT INR APTT BUN 9 Creatinine 0.50 L Est GFR ( Amer) > 60 Est GFR (Non-Af Amer) > 60 BUN/Creatinine Ratio 18 Uric Acid 6.0 Magnesium AST 51 H ALT 132 H Lactate Dehydrogenase 173 Urine Color Urine Clarity Urine pH Ur Specific [place] Urine Protein Urine Glucose (UA) Urine Ketones Urine Blood Urine Nitrite Urine Bilirubin Urine Urobilinogen Ur Leukocyte Esterase Urine Microscopic RBC Urine Microscopic WBC Ur Squamous Epith Cells Urine Bacteria Hyaline Casts Ur Culture Indicated? Urine Creatinine Protein/Creatinin Ratio Urine Total Protein Urine Opiates Screen Ur Barbiturates Screen Ur Phencyclidine Scrn Ur Amphetamines Screen U Benzodiazepines Scrn Urine Cocaine Screen U Marijuana (THC) Screen Ur Drug Screen Interp Blood Type Antibody Screen 10/30/18 02:42 WBC RBC Hgb Hct MCV MCH MCHC RDW Plt Count MPV Immature Gran % Seg Neutrophils % Lymphocytes % Monocytes % Eosinophils % Basophils % Neutrophils # Lymphocytes # Monocytes # Eosinophils # Basophils # Nucleated RBCs/100 WBC Immature Plt Fraction PT INR APTT BUN 18 Creatinine 0.60 Est GFR ( Amer) > 60 Est GFR (Non-Af Amer) > 60 BUN/Creatinine Ratio 30 H Uric Acid 6.2 Magnesium AST 23 ALT 87 H Lactate Dehydrogenase 136 L Urine Color Urine Clarity Urine pH Ur Specific [place] Urine Protein Urine Glucose (UA) Urine Ketones Urine Blood Urine Nitrite Urine Bilirubin Urine Urobilinogen Ur Leukocyte Esterase Urine Microscopic RBC Urine Microscopic WBC Ur Squamous Epith Cells Urine Bacteria Hyaline Casts Ur Culture Indicated? Urine Creatinine Protein/Creatinin Ratio Urine Total Protein Urine Opiates Screen Ur Barbiturates Screen Ur Phencyclidine Scrn Ur Amphetamines Screen U Benzodiazepines Scrn Urine Cocaine Screen U Marijuana (THC) Screen Ur Drug Screen Interp Blood Type Antibody Screen Labs on day of discharge: Labs from last 24 hours 10/30/18 10/30/18 02:42 02:42 WBC 11.5 H RBC 3.72 L Hgb 9.7 L Hct 31.3 L MCV 84.1 MCH 26.1 L MCHC 31.0 L RDW 13.6 Plt Count 270 MPV 10.7 Immature Gran % 0.8 Seg Neutrophils % 64.1 Lymphocytes % 27.6 Monocytes % 6.7 Eosinophils % 0.6 Basophils % 0.2 Neutrophils # 7.4 Lymphocytes # 3.2 Monocytes # 0.8 Eosinophils # 0.1 Basophils # 0.0 Immature Plt Fraction 5.7 BUN 18 Creatinine 0.60 Est GFR ( Amer) > 60 Est GFR (Non-Af Amer) > 60 BUN/Creatinine Ratio 30 H Uric Acid 6.2 AST 23 ALT 87 H Lactate Dehydrogenase 136 L Date of admission: 10/27/18 12:16 Primary care physician: Jeremiah Butcher MD Discharging clinician: Mis Smallwood Anticipated date of discharge: 10/30/18 - Patient Status Disposition: Home, Self-Care Condition: Good Functional capacity at discharge: independent ambulation Overall status at discharge: patient is progressing back to baseline - Discharge Instructions Follow Up With: Jeremiah Butcher MD [Primary Care Provider] - Bola Malone MD [Partnered Physician] - - Diet and Activity Activity: increase activity as tolerated Diet: regular diet Hospital Course Reason for admission: induction of labor, IUP at term Delivery: section Episiotomy: none Laceration: none Other procedures: none complications: none Discharge diagnosis: IUP at term delivered [place] baby: male Time Attestation: Total time spent providing and/or coordinating discharge services: Time Spent: Less than 30 minutes - VTE Reasons for not Prescribing Prophylaxis: Treatment not Indicated - Low risk for VTE Documentation of Mechanical Device: Intermittent pneumatic compression device Exam - Constitutional Vitals: Temp Pulse Resp BP Pulse Ox 98.4 F 88 16 115/78 96 10/30/18 12:00 10/30/18 12:00 10/30/18 12:00 10/30/18 12:00 10/30/18 12:00 General appearance IM: A&O X 3 - Respiratory Respiratory exam: Present: CTAB - Cardiovascular Cardiovascular exam IM: Present: RRR, +S1, +S2 - GI/Abdominal GI/Abdominal exam IM: normal bowel sounds, pulsatile mass, no peritoneal signs Incision: normal, dry, dressed - Rectal Rectal exam: deferred - Uterine Tone: Firm Uterus Position: At Umbilicus, Midline - Extremities Exam Extremities exam IM: Present: normal capillary refill, normal inspection, radial pulses palpable and symmetrical - Neurological Exam Neurological exam: alert, CN II-XII intact, normal gait, oriented X3, reflexes normal, no focal deficits, strengths equal and symetr throughout - Psychiatric Additional comments: Signs and symptoms of depression discussed with patient and she verbalizes understanding of when to seek help.
== END 2018-10-30 15:20 | disposition home or self-care (01) | DRG 540 ==
LOC: 1NENULAB → OBSVTOIN 12:16 → 1NENULAB 16:55 → 1NENUOBS 10-28 03:28
PROVIDERS: ADMIT Registered Nurse; ATTEND Registered Nurse

== ENCOUNTER 2022-04-01 09:20 | Observation (INO) ==
[2022-04-01] MEDS ORDERED: Isovue-370 500 ML BOTTLE IVP ONE (09:34)
[2022-04-01] MEDS ORDERED: 0.9 % Sodium Chloride 1,000 ML IVC ONE (09:34)
[2022-04-01] MEDS ORDERED: Ondansetron 4 MG/2 ML VIAL IVP ONE (09:34)
[2022-04-01] MEDS ORDERED: Ketorolac 30 MG/ML VIAL IVP ONE (09:34)
[2022-04-01 10:21] LABS: Bacteria,Urine Few per hpf (None-Few); Bilirubin,Urine Negative (Negative); Blood,Urine Moderate (Negative); Clarity,Urine Clear (Clear); Color,Urine Light-Yellow (Yellow); Glucose,Urine (UA) Normal (Normal); Ketones,Urine Negative (Negative); Leukocyte Esterase,Urine Negative (Negative); Mucus,Urine Few per lpf (None-Few); Nitrite,Urine Negative (Negative); Protein,Urine Negative (Neg-Trace); Specific Gravity,Urine 1.013 (1.010-1.025); Squamous Epithelial Cell,Urine Few per hpf (None-Few); Urobilinogen,Urine Normal (Normal); WBC,Urine 0-3 per hpf (0-3)
[2022-04-01 10:36] LABS: Basophils # 0.1 K/mcL (0.0-0.2); Basophils % 0.9 %; Eosinophils # 0.1 K/mcL (0.0-0.6); Eosinophils % 1.2 %; Hematocrit 40.3 % (35.3-44.9); Hemoglobin 13.4 g/dL (11.5-15.4); Immature Granulocytes % 0.2 % (0-4); Lymphocytes # 1.7 K/mcL (0.6-4.6); Lymphocytes % 26.5 %; Mean Corpuscular HGB Conc 33.3 g/dL (31.6-35.5); Mean Corpuscular Hemoglobin 30.4 pg (28.0-33.3); Mean Corpuscular Volume 91.4 fL (83.0-100.0); Mean Platelet Volume 10.4 fL (9.4-12.4); Monocytes # 0.3 K/mcL (0.0-1.3); Monocytes % 5.3 %; Neutrophils # 4.3 K/mcL (1.6-8.9); Platelet Count 287 K/mcL (140-400); Red Blood Count 4.41 M/mcL (3.82-4.97); Red Cell Distribution Width 11.6 % (11.5-14.5); Segmented Neutrophils % 65.9 %; White Blood Count 6.5 K/mcL (4.3-11.1)
[2022-04-01 10:59] LABS: Alanine Aminotransferase 10 Units/L (7-52); Albumin 4.4 g/dL (3.5-5.7); Albumin/Globulin Ratio 1.5 (1.1-2.2); Alkaline Phosphatase 49 Units/L (34-104); Amylase 34 Units/L (29-103); Aspartate Amino Transferase 12 Units/L (13-39); BUN/Creatinine Ratio 19 (6-26); Bilirubin,Indirect 0.4 mg/dL (0.0-1.0); Bilirubin,Total 0.4 mg/dL (0.3-1.0); Blood Urea Nitrogen 13 mg/dL (6-20); Carbon Dioxide 23 mEq/L (23-29); Chloride 106 mEq/L (98-107); Glucose 117 mg/dL (70-105); Lipase 66 Units/L (11-82); Osmolality,Calculated 283 (280-300); Potassium 3.5 mEq/L (3.5-5.1); Sodium 136 mEq/L (136-145); Total Protein 7.4 g/dL (6.4-8.9); Troponin I < 0.03 ng/mL (< 0.04); eGFR For African Americans > 60 (> 60); eGFR For Non-African Americans > 60 (> 60)
[2022-04-01] MEDS ORDERED: Piperacillin/Tazobactam 3.375 GM in 0.9 % Sodium Chloride Mini Bag 100 ML IVPB ONE (12:00)
[2022-04-01] MEDS ORDERED: Melatonin 3 MG TABLET PO PRN ×2 (13:08→19:20)
[2022-04-01] MEDS ORDERED: Ondansetron 4 MG/2 ML VIAL IVP PRN ×3 (13:08→19:20)
[2022-04-01] MEDS ORDERED: Naloxone 0.4 MG/ML INJ IVP PRN ×2 (13:08→19:20)
[2022-04-01] MEDS ORDERED: Ketorolac 30 MG/ML VIAL IM PRN (13:08)
[2022-04-01 13:57] LABS: INR 1.1; Prothrombin Time 11.7 Seconds (9.4-12.1)
[2022-04-01] MEDS ORDERED: *HR* Rocuronium Bromide 50 MG/5 ML VIAL ONE (14:58)
[2022-04-01] MEDS ORDERED: Lidocaine HCL 4 ML Topical Solution (Laryng-O-Jet Kit Sterile Pak) TP ONE (14:58)
[2022-04-01] MEDS ORDERED: Lidocaine -MPF 2% 2 ML VIAL ONE (14:58)
[2022-04-01] MEDS ORDERED: *HR* FentaNYL (PF) 100 MCG/2 ML VIAL ONE (14:58)
[2022-04-01] MEDS ORDERED: Ondansetron 4 MG/2 ML VIAL ONE (14:58)
[2022-04-01] MEDS ORDERED: *HR* Midazolam HCl 2 MG/2 ML VIAL ONE (14:58)
[2022-04-01] MEDS ORDERED: *HR* Propofol 200 MG/20 ML VIAL IVP ONE (14:59)
[2022-04-01] MEDS ORDERED: *HR* HYDROmorphone (PF) 1 MG/ML SYRINGE IVP PRN (15:44)
[2022-04-01] MEDS ORDERED: *HR* OxyCODONE Immed Rel 5 MG TABLET PO PRN (15:44)
[2022-04-01] MEDS ORDERED: Promethazine 6.25 MG in Water for inj. (sterile) 20 ML IVPB PRN (15:44)
[2022-04-01] MEDS ORDERED: Famotidine 20 MG/2 ML VIAL IVP ONE (15:44)
[2022-04-01] MEDS ORDERED: *HR* HYDROmorphone 2 MG TABLET PO PRN (15:44)
[2022-04-01] MEDS ORDERED: *HR* Labetalol 20 MG/4 ML SYRINGE IVP PRN ×2 (15:44→19:20)
[2022-04-01] MEDS ORDERED: Acetaminophen IV 1,000 MG/100 ML BAG IVPB ONE ×2 (15:44→17:00)
[2022-04-01] MEDS ORDERED: Scopolamine Patch 1.5 MG PATCH.TD72 TD SCH (15:45)
[2022-04-01] MEDS ORDERED: *HR* HYDROMORPHONE 2 MG/ML VIAL ONE (16:56)
[2022-04-01] MEDS ORDERED: *HR* Metoprolol 5 MG/5 ML VIAL IVP ONE (16:57)
[2022-04-01] MEDS ORDERED: Sugammadex Sodium 200 MG/2 ML VIAL IV ONE ×3 (17:01→17:52)
[2022-04-01] MEDS: Ketorolac 30 MG/ML VIAL IM PRN (20:10)
[2022-04-01] MEDS: Ampicillin/Sulbactam 3,000 MG in 0.9 % Sodium Chloride Mini Bag 100 ML IVPB SCH (20:11)
[2022-04-01] MEDS: *HR* OxyCODONE/APAP 5/325 TABLET PO PRN (23:25)
[2022-04-02] MEDS: Ampicillin/Sulbactam 3,000 MG in 0.9 % Sodium Chloride Mini Bag 100 ML IVPB SCH ×3 (00:57→13:25)
[2022-04-02] MEDS: *HR* OxyCODONE/APAP 5/325 TABLET PO PRN ×2 (03:27→10:54)
[2022-04-02 05:36] LABS: Basophils % 0.2 %; Hematocrit 37.1 % (35.3-44.9); Hemoglobin 12.4 g/dL (11.5-15.4); Immature Granulocytes % 0.4 % (0-4); Lymphocytes % 5.4 %; Mean Corpuscular HGB Conc 33.4 g/dL (31.6-35.5); Mean Corpuscular Hemoglobin 30.7 pg (28.0-33.3); Mean Corpuscular Volume 91.8 fL (83.0-100.0); Mean Platelet Volume 10.7 fL (9.4-12.4); Monocytes # 0.4 K/mcL (0.0-1.3); Monocytes % 3.6 %; Platelet Count 288 K/mcL (140-400); Red Blood Count 4.04 M/mcL (3.82-4.97); Red Cell Distribution Width 11.7 % (11.5-14.5); Segmented Neutrophils % 90.4 %
[2022-04-02 05:51] LABS: Alanine Aminotransferase 121 Units/L (7-52); Albumin 4.1 g/dL (3.5-5.7); Albumin/Globulin Ratio 1.5 (1.1-2.2); Alkaline Phosphatase 43 Units/L (34-104); Aspartate Amino Transferase 83 Units/L (13-39); BUN/Creatinine Ratio 15 (6-26); Bilirubin,Direct 0.1 mg/dL (0.0-0.2); Bilirubin,Indirect 0.6 mg/dL (0.0-1.0); Bilirubin,Total 0.7 mg/dL (0.3-1.0); Blood Urea Nitrogen 9 mg/dL (6-20); Calcium 8.7 mg/dL (8.6-10.3); Carbon Dioxide 22 mEq/L (23-29); Chloride 103 mEq/L (98-107); Globulin 2.7 g/dL (2.4-3.5); Glucose 147 mg/dL (70-105); Osmolality,Calculated 277 (280-300); Sodium 133 mEq/L (136-145); Total Protein 6.8 g/dL (6.4-8.9); eGFR For African Americans > 60 (> 60); eGFR For Non-African Americans > 60 (> 60)
[2022-04-02 05:52] LABS: Lymphocytes # 0.7 K/mcL (0.6-4.6); Neutrophils # 10.9 K/mcL (1.6-8.9)
[2022-04-02] MEDS ORDERED: 0.9 % Sodium Chloride 1,000 ML IVC SCH (07:45)
[2022-04-02] MEDS ORDERED: Simethicone 80 MG TAB.CHEW PO PRN (08:15)
[2022-04-02] MEDS: Ketorolac 30 MG/ML VIAL IM PRN (08:36)
[2022-04-02] MEDS ORDERED: amLODIPine 5 MG TABLET PO SCH (09:00)
[2022-04-02 10:53] VITALS: BP 108/72; PULSE 92; TEMP 98.5; O2SAT 98
[2022-04-02 13:52] LABS: Albumin 3.9 g/dL (3.5-5.7); Albumin/Globulin Ratio 1.4 (1.1-2.2); Bilirubin,Direct 0.2 mg/dL (0.0-0.2); Bilirubin,Indirect 0.5 mg/dL (0.0-1.0); Bilirubin,Total 0.7 mg/dL (0.3-1.0); Globulin 2.7 g/dL (2.4-3.5); Total Protein 6.6 g/dL (6.4-8.9)
== END 2022-04-02 14:59 | disposition home or self-care (01) ==
LOC: 3BNU 09:20 → EMEROOARM 09:20 → SUATTDRO 12:31 → 3BNU 12:45
PROVIDERS: ADMIT Student in an Organized Health Care Education/Training Program; ATTEND Internal Medicine